=== PATIENT | female | born 1960 | race Caucasian/White ===

== ENCOUNTER 2016-11-22 11:07 | Emergency (ER) | payer MEDICARE, OTHER ==
[~2016-11-22] VITALS: Ht 162.6 cm; Wt 69.0 kg
[~2016-11-22 11:07] MED LIST: ASPIR-LOW81 MG PO; GABAPENTIN600 MG PO; KLONOPIN1 MG PO; LAMOTRIGINE100 MG PO; LIPITOR40 MG PO; NICORETTE4 M1 BUCCAL; RELPAX40 MG PO; WELLBUTRIN SR100 MG PO
== END 2016-11-22 12:39 | disposition home or self-care (01) ==
LOC: ED 11:07
DX: R42 Dizziness and giddiness (principal); H53.8 Other visual disturbances; F41.9 Anxiety disorder, unspecified
CPT/HCPCS: 80053; 85025; 99283

== ENCOUNTER 2017-02-02 23:16 | Emergency (ER) | payer MEDICARE, OTHER ==
[~2017-02-02] VITALS: Ht 162.6 cm; Wt 69.8 kg
== END 2017-02-03 04:09 | disposition home or self-care (01) ==
LOC: ED 23:16
DX: S80.12XA Contusion of left lower leg, initial encounter (principal); S80.11XA Contusion of right lower leg, initial encounter; S40.022A Contusion of left upper arm, initial encounter; S40.021A Contusion of right upper arm, initial encounter; Z04.41 Encounter for examination and observation following alleged adult rape; Z87.891 Personal history of nicotine dependence; F31.9 Bipolar disorder, unspecified; Z86.73 Personal history of transient ischemic attack (TIA), and cerebral infarction without residual deficits; Z98.51 Tubal ligation status; Z98.890 Other specified postprocedural states; Z79.82 Long term (current) use of aspirin; Z79.899 Other long term (current) drug therapy; X58.XXXA Exposure to other specified factors, initial encounter
CPT/HCPCS: 90471; 90715; 96372; 99283; J0696

== ENCOUNTER 2017-06-06 11:47 | Emergency (ER) | payer MEDICARE, OTHER ==
[~2017-06-06] VITALS: Ht 162.6 cm; Wt 76.7 kg
[2017-06-06] MEDS ORDERED: ADDERALL 10 MG10 MG PO (12:01)
[2017-06-06] MEDS ORDERED: CYMBALTA20 MG PO (12:01)
[2017-06-06] MEDS ORDERED: VOLTAREN100 GM TOP (14:18)
== END 2017-06-06 14:25 | disposition home or self-care (01) ==
LOC: ED 11:47
PROC: 0S9C3ZZ Drainage of Right Knee Joint, Percutaneous Approach (ICD-10-PCS; principal; 2017-06-06)
DX: M17.11 Unilateral primary osteoarthritis, right knee (principal); F31.9 Bipolar disorder, unspecified; Z79.899 Other long term (current) drug therapy
CPT/HCPCS: 20610; 99283

== ENCOUNTER 2017-07-06 15:20 | Observation (INO) | payer MEDICARE, OTHER ==
[~2017-07-06] VITALS: Ht 162.6 cm; Wt 78.0 kg
[~2017-07-06 15:20] MED LIST changes: +ADDERALL 10 MG10 MG PO; +CYMBALTA20 MG PO; +VOLTAREN100 GM TOP
--- NOTE | 2017-07-06 17:29 | NUR ---
PATIENT IS HERE TODAY FOR PREADMISSION APPOINTMENT. SHE IS SCHEDULED FOR A LEFT TOTAL KNEE ARTHROPLASTY ON 07/20/17. SHE STATES SHE HAS BEEN TO THE [facility] FOR PHYSICAL THERAPY AND THIS IS WHERE SHE WOULD LIKE HER THERAPY TO BE SET UP AT AFTER SURGERY. THE PATIENT STATES SHE WILL BE STAYING WITH HER FIANCE AFTER SURGERY. HIS HOME HAS 2 STEPS INTO IT WITH NO HAND RAIL. THERE ARE NO STEPS INSIDE THE HOME. THERE IS A WALK IN SHOWER WITH A HAND HELD SHOWER HEAD AND SHE IS LOOKING INTO A SHOWER BENCH. SHE IS GOING TO LOOK INTO A WALKER BUT ASKED IF IT WAS POSSIBLE TO [facility] TO ARRANGE THIS. INFORMATION WILL BE SENT TO DR MEJIA OFFICE TO [facility] FOR FURTHER FOLLOW UP.
--- NOTE | 2017-07-09 18:09 | NUR ---
RECIEVED A MESSAGE FROM THE PRE ADMIT NURSE STATING THE PT HAD SOME QUESTIONS SHE COULD NOT ANSWER AND TOLD THE PT I WOULD CALL HER. SO I CALLED PT AT 1655 ANDSWERED PT QUESTION SHE WAS WONDERING IF THE INSURANCE WOULD PAY FOR A RAISED TOILET SEAT, SHOWER CHAIR AND A HOSPITAL BED. I TOLD HER UNFORTUNATELY THEY WILL NOT PAY FOR ANY EQUIPMENT TO BE USED IN THE BATHROOM. [facility] TOLD HER THAT A LTK SURGERY DOES NOT FIT THE CRITERIA FOR THE INSURANCE TO PAY FOR A HOSPITAL BED. DID TELL HER SHE IS WELCOME TO RENT THIS EQUIPMENT EITHER AT [facility] OR [facility]. GAVE HER THE OFFICE PHONE NUMBER HERE AND TOLD HER SHE IS WELCOME TO CALL HERE ANY TIME. ALSO TOLD HER WE WOULD ORDER HER A FRONT WHEELED WALKER WHEN SHE IS HERE.
--- NOTE | 2017-07-20 08:52 | NUR ---
07/20/17 0852 Sandra Houston 0883 PT ARRIVED TALKING AND A LITTLE DROWSY. DENIES PAIN AND NAUSEA.
--- NOTE | 2017-07-20 09:30 | NUR ---
PT ARRIVED FROM PACU. PT AWAKE ORIENTED AND RESPONDING APPROPRIATLY TO QUESTIONS. PT DENIES PAIN AND NAUSEA. PT REPORTS ITCHING (SEE MAR FOR MEDICATION GIVEN). PIV INFUSING TRANEXAMIC ACID VIA IV PUMP. DRESSING CDI. CRYO CUFF, SCDS, BHAVANA HOSE, AND HEEL PROTECTORS IN PLACE. PT TOELRATING PO WATER AND COFFEE. NO ADDITIONAL REQUESTS OR COMPLAINTS AT THIS TIME. BED RAILS UP. CALL LIGHT WITH INREACH.
--- NOTE | 2017-07-20 11:32 | NUR ---
VITALS AND FOCUSSED ASSESSMENT DUE. PT AWAKE AND TALKING WITH BOYFRIEND. PT DENIES PAIN AND NAUSEA. TOLERATING PO PUDDING AND FLUIDS. DIET ORDER ADVANCED. PT MAINTAINING O2 ABOVE 92% ON ROOM AIR. PT DENIES URGE TO VOID. NO INCONTENANCE NOTED. SPINAL LEVEL NOW AT L3. PT REPORTS NUMBNESS IN FEET. CRYO CUFF, HEAL PROTECTORS, SCD'S, AND BHAVANA HOSE IN PLACE. BED RAILS UP. FAMILY AT BEDSIDE. CALL LIGHT WITHIN REACH.
--- NOTE | 2017-07-20 12:48 | NUR ---
PT CALL LIGHT ON. PT REQUESTS TO GET UP TO COMODE. MEDIUM INCONTINANCE EPISODE NOTED IN BED. PT UNABLE TO GO WHILE ON COMODE. PT BACK TO BED WITHOUT INCIDENT. CRYO CUFF ICE REPLACED. PT DENIES PAIN AND NAUSEA. PT TOLERATED LUNCH WITHOUT NAUSEA. CRYO CUFF, SCDS, BHAVANA HOSE, HEAL PROTECTORS BACK IN PLACE. BED RAILS UP. CALL LIGTH WITHIN REACH.
--- NOTE | 2017-07-20 13:01 | NUR ---
PT REPORTS ITCHING. SEEN SCRATCHING WHILE IN BED. SEE MAR FOR MEDICATION GIVEN. PT STATES "I'M GOING TO TAKE A NAP NOW." NO ADDITIONAL REQUESTS OR COMPLAINTS AT THIS TIME. CALL LIGHT WITHIN REACH.
[2017-07-20] MEDS ORDERED: LAMOTRIGINE200 MG PO (13:19)
--- NOTE | 2017-07-20 13:31 | OR ---
[facility] [address] [place], [place] [address] Signed DATE OF OPERATION: 07/20/2017 SURGEON: Lois Barros MD PREOPERATIVE DIAGNOSIS: Severe degenerative joint disease, left knee. POSTOPERATIVE DIAGNOSIS: Severe degenerative joint disease, left knee. PROCEDURE PERFORMED: Left total knee arthroplasty with computer navigation. CHEMIST ORGANIC: DAVID Aragon ANESTHESIA: Spinal. BLOOD LOSS: Minimal. TOURNIQUET TIME: 58 minutes. IMPLANTS: Hien Triathlon size 4 femur, 3 tibia, 11 mm insert and a 32 mm patella. BRIEF HISTORY: Valerie is a 56-year-old female with worsening of arthritis particularly at patella and femur. Risks and benefits of operative treatment were discussed with her and she elected to proceed. DESCRIPTION OF PROCEDURE: Once consent was obtained, she was taken to the operating room. After adequate anesthesia, she was placed on the operating room table. All downside pressure points well padded. The left leg was placed in well-padded proximal thigh tourniquet and placed on a hip bump. The leg was then prepped and draped in the standard sterile fashion and exsanguinated using Esmarch bandage. Tourniquet inflated to 250 mmHg. Standard anterior approach through curved incision was taken through the skin and Electronically Signed By: LOIS BARROS MD 07/20/17 1331 PATIENT NAME: VALERIE CEE OPERATIVE REPORT DATE OF : 62 REPORT #: [id number] PHYSICIAN: LOIS BARROS MD PCP: MIRIAN WHITLEY REPORT IS CONFIDENTIAL AND NOT TO BE RELEASED WITHOUT AUTHORIZATION [facility] [address] [place], [place] [address] Signed subcutaneous tissue. Median parapatellar arthrotomy was performed. The infrapatellar fat pad was excised and the MCL was elevated of a sleeve subperiosteally around the posterior corner. Knee was flexed. The anterior horns of menisci were transected as was the ACL. The PCL was found to be intact. The navigation guide was pinned to the distal femur and the femur was registered with the computer. The distal femoral cut was then made in alignment with the axis. The AP cutting block was then pinned in alignment with the epicondylar axis. Anterior, posterior, and chamfer cuts were made. It was sized to a four at that point. The attention was turned to proximal tibia. The navigation guide was again pinned to the proximal tibia, and the tibia was registered with the computer. The cutting block was then pinned in neutral alignment. The cut was made with care taken to protect the MCL and patellar tendon. The bone was removed as were any meniscal remnants. Posterior release performed off the femur. Posterior osteophytes were removed. The flexion and extension gaps were sized found to be symmetric at 11 mm. The trials were then positioned using through range of motion and found to be stable. The patella was cut sized over 32 mm patella. There was extensive erosion. The distal femur was finished using the drill and the proximal tibia was finished using the keel punch. The bone surfaces were pulse lavaged, dried with a Ray-Dov and the cement was mixed. When it reached proper consistency, displaced all implants on all bone surfaces. The cement was placed on all implants and on all bone surfaces. Tibia was impacted in position first followed by the femur. Any excess was removed. The polyethylene was snapped into position. The femur was impacted in position again and remaining cement was removed. The knee was extended and nicely loaded. The patella was clamped and any remaining cement was removed. The cement was allowed to hardened sufficiently. Once it hardened sufficiently, the knee was flexed and the remaining cement was removed using osteotomes. The knee was pulse lavaged at intervals throughout the procedure. A total of 3 L antibiotic irrigation was used. The periarticular soft tissues were injected with a mixture of ropivacaine, Toradol. The arthrotomy was then closed using #2 Stratafix, 0 Stratafix for subcutaneous tissue, and donita for the skin. Knee was dressed with Mepilex Ag dressing, ABD, and Jose wrap. She tolerated the procedure well. All sponge, needle, and instrument counts were correct. Lois Barros MD BA/MODL /[id number] Electronically Signed By: LOIS BARROS MD 07/20/17 1331 PATIENT NAME: VALERIE CEE OPERATIVE REPORT DATE OF : 62 REPORT #: [id number] PHYSICIAN: LOIS BARROS MD PCP: MIRIAN WHITLEY REPORT IS CONFIDENTIAL AND NOT TO BE RELEASED WITHOUT AUTHORIZATION [address] [address] Signed Copies: ~ Electronically Signed By: LOIS BARROS MD 07/20/17 1331 PATIENT NAME: JAYEVALERIEMAO CURTIS OPERATIVE REPORT DATE OF : 62 REPORT #: [id number] PHYSICIAN: LOIS BARROS MD PCP: MIRIAN WHITLEY REPORT IS CONFIDENTIAL AND NOT TO BE RELEASED WITHOUT AUTHORIZATION
[2017-07-20] MEDS ORDERED: DULOXETINE HCL60 MG PO (13:58)
--- NOTE | 2017-07-20 14:17 | NUR ---
PATIENT BLADDER SCANNED FOR GREATER THAN 999. UP TO COMMODE TO VOID 300ML OF ORANGE URINE. PATIENT REPEAT SCAN AFTER VOID IS 924 ML. PATIENT UP TO COMMODE TO DOUBLE VOID. PATIENT REPORTS URINARY RETENTION AT BASELINE.
--- NOTE | 2017-07-20 14:46 | NUR ---
PATIENT SUCCESSFUL IN VOIDING 1300ML IN THE LAST HOUR. PHYSICAL THERAPY IN TO WORK WITH PATIENT. PATIENT DENIES ANY PAIN AT THIS TIME.
--- NOTE | 2017-07-20 15:30 | NUR ---
PT WALKING WITH PT.
--- NOTE | 2017-07-20 15:43 | NUR ---
Medications reconciled using pharmacy fill records, visual inspection of RX vials and patient interview.
--- NOTE | 2017-07-20 15:47 | NUR ---
We will be dispensinge patient's own medication (Adderall 10mg generic) to her will inpatient
--- NOTE | 2017-07-20 16:54 | NUR ---
AFTERNOON ASSESSEMENT DUE. PT UP TO COMODE WITH ANOTHER RN. PT VOIDING NOW WITHOUT ISSUE. PT BACK TO BED WITHOUT ISSUE. PT CONTINUES TO "FEEL ITCHY." ASSESSEMENT DONE. MEDICATIONS GIVEN ORDERED. DINNER ARRIVED. PT EATING. PT DENIES PAIN AND NASUEA. CRYO CUFF, SCD'S, HEEL PROTECTORS, BHAVANA HOSE, AND PULSE OX ON. CALL LIGHT WITHIN REACH. BED RAILS UP.
--- NOTE | 2017-07-20 17:16 | NUR ---
CALL TO DR. MEJIA ABOUT PATIENT ITCHING. DR. MEJIA SUGGESTED DISCUSSING WITH DR. JUSTIN OR COATING MIXER SUPERVISOR. DR. JUSTIN ORDERED MEDICATIONS.
--- NOTE | 2017-07-20 18:21 | NUR ---
PT HERE FOR LEFT TKA. O/10 PAIN TODAY. DENIES NAUSEA. ISSUES WITH ITCHING TODAY. BENEDRYL GIVEN X2 WELL PEPCID AND VISTERAL. PT UP WITH PHYSICAL THERAPY. PT VOIDING WITHOUT ISSUE. 1 PERSON ASSIST. REGULAR DIET. SL IN RIGHT HAND. PT ANXIOUS AT TIMES. ADDERALL TONIGHT. SPINAL RESOLVED. DURAMORPH PROTOCOL COMPLETE AT 1717.
--- NOTE | 2017-07-20 18:58 | NUR ---
PT CALL LIGHT ON. PT REPORTS "BAD ITCHING." BENADRYL GIVEN (SEE MAR). PTS BOYFRIEND (LUIS) AT BEDSIDE. CALL LIGHT WITHIN REACH. BED RAILS UP. CRYO CUFF, SCD'S, BHAVANA HOSE, HEEL PROTECTORS IN PLACE. WET WASH CLOTH PROVIDED.
--- NOTE | 2017-07-20 19:41 | NUR ---
RECIEVED REPORT FROM DAY SHIFT NURSE. PATIENT RESTING IN BED WITH FRIENDS IN ROOM. SHE IS SMILING AND LAUGHING. NO C/O AT THIS TIME. CRYOCUFF IN PLACE ON L KNEE. HEEL PROTECTORS AND SCDS ON. PATIENT DENIES NEEDS. CALL LIGHT IN REACH.
--- NOTE | 2017-07-20 20:15 | NUR ---
PATIENT RESTING IN BED. LAUGHING AND SMILING WITH FRIEND AT BEDSIDE. PATIENT C/O PAIN IN HER L KNEE 11/17. DELIVERED CRACKERS TO TAKE WITH HER OXYCODONE TO PREVENT NAUSEA. 1 TAB ADMINISTERED. PATIENT'S LUNGS ARE CLEAR. HR REGULAR. PALPABLE PEDAL PULSES. NO PEDAL EDEMA. PATIENT DENIES NUMBNESS/TINGLING. JEWELL WRAP C/D/I. BS ACTIVE. PATIENT DENIES FLATUS AT THIS TIME. DENIES FURTHER NEEDS. CALL LIGHT IN REACH. EDUCATED TO CALL IN 1 HOUR IF PAIN IS NOT TOLERABLE. SHE AGREED.
--- NOTE | 2017-07-20 22:02 | NUR ---
PATIENT NOW RATES L KNEE PAIN 02/17. DILAUDID ADMINISTERED PER JUL. ENCOURAGED PATIENT TO CALL IF PAIN MEDICATION DOES NOT TAKE HER PAIN LEVEL DOWN TO A TOLERABLE LEVEL. PATIENT DENIES FURTHER NEEDS. CALL LIGHT IN REACH.
--- NOTE | 2017-07-20 22:22 | NUR ---
REASSESSED PATIENT'S PAIN. PATIENT STATES IT IS STILL NOT TOLERABLE AT AN 8/10. CALLED MD TO OBTAIN NEW ORDER.
--- NOTE | 2017-07-20 22:28 | NUR ---
1 TAB DILAUDID ADMINISTERED. PATIENT ALSO C/O PRURITUS->BENADRYL ADMINISTERED.
--- NOTE | 2017-07-20 23:41 | NUR ---
PATIENT SLEEPING. CPAP IN PLACE. CALL LIGHT IN REACH.
--- NOTE | 2017-07-21 | NUR ---
PATIENT RESTING IN BED. STATES HER PAIN IS A 5/10 AND WOULD LIKE PAIN MEDICAITON SO HER PAIN DOES NOT GET OUT OF CONTROL AGAIN. OXYCODONE ADMINISTERED. ABX INFUSING. CALL LIGHT IN REACH.
--- NOTE | 2017-07-21 02:30 | NUR ---
ASSISTED PATIENT TO BATHROOM. VOIDED. BACK TO BED. APPLIED SCDS AND HEEL PROTECTORS. NO C/O PAIN AT THIS TIME. PATIENT STILL ITCHING. BENADRYL ADMINISTERED. REFILLED WATER PITCHER. CRYOCUFF TO L KNEE. JEWELL INTACT AND DRY. NO PEDAL EDEMA. PALPABLE PEDAL PULSES. LUNGS CLEAR, HR REGULAR, ACTIVE BS. PATIENT STATES SHE IS PASSING FLATUS. PATIENT STATES SHE IS GOING TO READ AT THIS TIME. DENIES FURTHER NEEDS. CALL LIGHT IN REACH.
--- NOTE | 2017-07-21 04:20 | NUR ---
patient c/o pain 10 in l knee. patient states dilaudid po works better for her becuase she has taken it before and it worked. patient denies further needs. call light in reach.
--- NOTE | 2017-07-21 08:16 | NUR ---
MORNING ASSESSMENT AND MEDICATION DUE. PT UP TO CHAIR AND ASSISTED TO RESTROOM. ASSESSMENT DONE. FEET NOTED TO BE COLD, PULSES PRESENT. PT STATES "I LIKE MY FEET COLD." MEDICATIONS GIVEN (SEE MAR). PAIN MANAGEMENT PLAN DISCUSSED WITH PT. PT VERBALIZES UNDERSTANDING. PT EATING BREAKFAST. PHYSICAL THERAPY PLANS TO WORK WITH PT ARROUND 9AM. PT VERBALIZES UNDERSTANDING. CALL LIGHT WITHIN REACH. CRYO CUFF IN PLACE.
--- NOTE | 2017-07-21 09:13 | NUR ---
THIS OXYGEN FURNACE OPERATOR ASSISTED THE PATIENT TRANSFER FROM THE CHAIR TO THE BATHROOM. 1 PERSON ASSIST WITH FWW. PATIENT IS NOW RESTING IN BED. FRESH ICE WATER. CALL LIGHT WITHIN REACH. PATIENT STATES THAT HER PAIN LEVEL IS AN 8 OUT OF 10, BUT ALSO STATES THAT SHE HAD PAIN MEDICATION WITHIN THE LAST 20 MINUTES SO SHE IS WAITING FOR THOSE TO START WORKING. ICE IN CRYO. NO OTHER NEEDS AT THIS TIME.
--- NOTE | 2017-07-21 09:29 | NUR ---
PATIENT RATES LEFT LEG PAIN AT 8/10. GIVEN 10MG OF OXYCODONE BEFORE PHYSICAL THERAPY. PATIENT IS WIDE AWAKE, RESPIRATIONS ARE 18.
--- NOTE | 2017-07-21 11:24 | NUR ---
THIS RN OUT SIDE OF ROOM. PT LAUGH, AUDIBLE THROUGH DOOR, WITH FRIEND. THIS RN INTO ROOM FOR FOCUSED ASSESSMENT. PT IMMIDIATLY STATES "ITS AN 8 NO 10" FOR PAIN RAITING. FOCUSSED ASSESSMENT DONE. PT RETURNES TO LAUGHING AND JOKING WITH FRIEND AT BEDSIDE. PT SMILING AND WORKING ON PHONE. BED RAILS UP. CALL LIGHT WITHIN REACH. CRYO CUFF, SCD'S BHAVANA HOSE AND HEEL PROTECTORS IN PLACE.
--- NOTE | 2017-07-21 11:30 | NUR ---
PT CONTINUES TO REPORT 10/10 PAIN. PT DISPLAYS RELAXED POSTURE, LAUGHING AND TALKING WITH FRIEND. PT STATES "I'M NOT TRYING TO GET MORE PAIN MEDICATION BUT ITS KILLING ME." NO DISTRESS NOTED ON ASSESSMENT. NEXT PAIN MEDCIATION DUE AT 1230. MD NOTIFIED. MD STATES NO NEW ORDERS AT THIS TIME, CONTINUE WITH CURRENT PAIN REGIEM WHICH INCLUDES 2 PRN PAIN MEDICATIONS.
--- NOTE | 2017-07-21 11:40 | NUR ---
PT UPDATED REGARDING PLAN OF CARE AND PAIN MANAGEMENT. PT VERBALIZES UNDERSTANDING AND STATES "THIS IS GREAT." PT EATING LUNCH. NO ADDITIONAL REQUESTS OR COMLAINTS AT THIS TIME. BED RAILSUP. CALL LIGHT WITHIN REACH.
--- NOTE | 2017-07-21 12:35 | NUR ---
THIS RN TO BEDSIDE. PT REQUESTS ASSISTANCE UP TO RESTROOM. PT UP WITH 1P STAND BY ASSIST AND FWW. PT VOIDS WITHOUT ISSUE. PT BACK TO BED. DRAW SHEET CHANGED. PT RATES HER PAIN AT "15." EDUCATION DONE REGARDING USE OF PAIN SCALE. PT RESTATES "10 TO THE 10TH POWER." PAIN MEDICATION GIVEN ORDERED. EDUCATION R/T PAIN CONTROL DONE. PT DEMONSTARTES AND VERBALIZES UNDERSTANDING. PT IN NO APPARENT DISTRESS. MUSLCES RELAXED, RR = 16, HR = 70. PT LAUGHING AND VISITING WITH FRIEND AT BEDSIDE. CRYO CUFF ATTACHED. SCD'S, BHAVANA HOSE, AND HEEL PROTECTORS ON. PT DENIES ITCHING AND NAUSEA. PT STATES NO ADDITIONAL REQUESTS OR COMPLAINTS AT THIS TIME. BED RAILS UP. CALL LIGHT WITHIN REACH.
--- NOTE | 2017-07-21 12:46 | NUR ---
PATIENT RESTING IN BED VISITING WITH FAMILY MEMBER. PATIENTS FAMILY MEMBER IN ROOM. RN IN ROOM. PATIENT STATES THAT RN JUST GAVE HER A PAIN MED. FRESH ICE WATER. ICE IN CRYO. CALL LIGHT WITHIN REACH. NO OTHER NEEDS AT THIS TIME.
--- NOTE | 2017-07-21 13:24 | NUR ---
PT RESTING IN BED AT THIS TIME. DOES NOT COMPLAIN OF PAIN. SHE REPORTS SHE WOULD LIKE TO TAKE A SMALL NAP BEFORE SHE HAS TO WORK WITH PHYSICLA THERAPY THIS AFTERNOON. PT REPORTS SHE DOES NOT REALLY WANT TO WORK WITH PHYSICAL THERAPY THIS AFTERNOON. RN GAVE EDUCATION ON IMPORTANCE OF MOBILIZATION, AND COMPLICATIONS OF NOT MOBILIZING PER PHYSICAL THERAPY. PATIENT WAS RECEPTIVE BUT DID NOT RESPOND. PT IS TEXTING ON PHONE, RELAXED POSTURE, NO DISTRESS NOTED ON VISIAL ASSESSMENT.
--- NOTE | 2017-07-21 14:19 | NUR ---
THIS RN TO BEDSIDE WITH AFTERNOON MEDICATION. PHYSICAL THERAPY AT BEDSIDE WITH PT. PT REPORTS 10/10 PAIN. NO NOTABLE DISTRESS, MUSCLES RELAXED, PT TALKING WITH PHYSICAL THERAPY. PT UP WITH PHYSICAL THERAPY FOR A WALK. JOKING WITH THERAPIST. SEE MAR FOR MEDICATION GIVEN.
--- NOTE | 2017-07-21 14:20 | NUR ---
PATIENT IN BED VISITING WITH A FAMILY MEMBER. FRESH ICE WATER. ICE IN CRYO. PT CAME IN TO WORK WITH PATIENT. PATIENT STATES THAT HER PAIN LEVEL IS A 10 OUT OF 10. RN IN ROOM AND NOTIFIED. CALL LIGHT WITHIN REACH. NO OTHER NEEDS AT THIS TIME.
--- NOTE | 2017-07-21 14:39 | NUR ---
PT SITTING IN BED-ALERT, ORIENTED AND VISITING WITH FRIEND. SHE SEEMS TO ME VERY PLEASANT, JOKING AND MENTIONED THAT SHE HAS A HIGH PAIN TOLERANCE. PT MENTIONED THAT SHE WOULD LIKE THE SUBSTANCE ABUSE SERVICES DIRECTOR TO COME AND SERVE COMMUMION. NOTIFIED FR CANDELARIO, HE WILL COME AROUND 1500. LET PT KNOW, WILL FOLLOW NEEDED
--- NOTE | 2017-07-21 14:50 | NUR ---
THIS RN CALLED TO BEDSIDE BY PHYSICAL THERAPIST. PHYSICAL THERAPIST STATES "PT SAYS SHE IS SEEING STARS." PT ASSISTED TO BED. PT PLACED IN SUPINE POSITION WITH HOB LOWERED. VITALS TAKEN. BP NOTED TO BE 81/45, RETAKEN 5 MINUTES LATER AT 85/53. PT REMAINS IN SUPINE POSITION. COOL CLOTH PLACED TO FORHEAD. O2 100% ON ROOM AIR. MD NOTIFIED OF BLOOD PRESSURE. MD AT BEDSIDE. STATES TO RETAKE BLOOD PRESSURE IN 15 MINUTES. BED RAILS UP. CALL LIGHT WITHIN REACH. CRYO CUFF, SCD'S, BHAVANA MCDERMOTT, HEAL PROTECTORS IN PLACE.
--- NOTE | 2017-07-21 15:10 | NUR ---
NOTIFIED OF SUSTAING SBP <90. MD STATES TO CONTINUE TO MONITOR AND GIVE HYDROXYZINE FOR ANXIETY. THIS RN TO BEDSIDE. BP TAKEN (82/41). MEDICATION GIVEN ORDERED (SEE MAR). PT CONTINUES RESTING SUPINE IN BED. NO REQUESTS OR COMPLAINS AT THIS TIME. BED RAILS UP. CALL LIGHT WITHIN REACH
--- NOTE | 2017-07-21 15:41 | NUR ---
DR. MEJIA CALLED WITH UPDATE ABOUT LOW BLOOD PRESSURE READING. DR. MEJIA STATES TO CONTINUE TO MONITOR FOR NOW.
--- NOTE | 2017-07-21 16:22 | NUR ---
THIS RN TO BEDSIDE TO MONITOR BP. BP NOW 105/49. PT NAPPING ON AND OFF, AWAKENS TO VOICE. RR = 14. PT STATES "I JUST NEEDED A NAP." PT HAS NO REQEUSTS OR COMLAINTS AT THIS TIME. FLUIDS ENCOAURGED. BED RAILS UP. CALL LIGHT WITHIN REACH.
--- NOTE | 2017-07-21 17:10 | NUR ---
MEDICARE OUTPATIENT OBSERVATION NOTICE SIGNED BY PATIENT. COPY GIVEN TO PT. PT DENIED QUESTIONS.
--- NOTE | 2017-07-21 17:24 | NUR ---
MEDICATION DUE. PT SITTING UP IN BED EATING DINNER. BP TAKEN. (105/52). PT RATES PAIN AT 5/10. PT DENIES NAUSEA AND ITCHING. PT APPEARS LESS ANXIOUS THAN BEFOR. MEDICATION GIVEN. BED RAILS UP. CALL LIGHT WITHIN REACH.
--- NOTE | 2017-07-21 17:54 | NUR ---
PT HERE FOR LEFT TKA. 1 PERSON STAND BY ASSIST. REGULAR DIET. PT STATING 10/10 PAIN ALL DAY. Q 4 HOUR PAIN MEDICAITONS ALTERNATED. LOW BLOOD PRESSURE THIS AFTERNOON. PAIN MEDICATION HELD UNTIL BP RETURNS TO WNL. DR. JUSTIN AND DR. MEJIA AWARE OF BOTH PAIN AND BP. VISTERAL AVALIABLE FOR EITHER ITCHING OR ANXIETY. GIVEN X2 TODAY. PT VOIDING AND TOLERATING PO WELL. PT UP WITH PHYSICAL THERAPY X2 TODAY. LAST BM 06/21/17.
--- NOTE | 2017-07-21 18:45 | NUR ---
THIS RN TO BEDSIDE TO CHECK ON PT. KARMA ESCALERA CHECKING BP. PT REQUESTS PAIN MEDICATION. SEE MAR FOR MEDICATION GIVEN. ICE REPLACED IN CRYO CUFF. BED RAILS UP. AT BEDSIDE. CALL LIGHT WITHIN REACH.
--- NOTE | 2017-07-21 19:10 | NUR ---
IN ROOM FOR REPORT, PT IS AWAKE IN BED VISITING WITH JANETT SMITH. PT DENIES NEEDS AT THIS TIME. CALL LIGHT IS WITHIN REACH.
--- NOTE | 2017-07-21 21:10 | NUR ---
PT HAS VISITORS IN ROOM AT THIS TIME. ADMINISTERED EVENING MEDICATIONS. DISCUSSED HOLDING OFF ON MORE PAIN MEDS TO AVOID LOW BP LIKE EARLIER IN THE DAY. PT IS CARRYING ON CONVERSATION AND DOES NOT SHOW OUTWARD SIGNS OF PAIN AT THIS TIME, BUT STATES SHE IS ANXIOUS. CALL LIGHT IS WITHIN REACH. PT DENIES FURTHER NEEDS.
--- NOTE | 2017-07-21 22:48 | NUR ---
PT CALLED ASKING FOR DILAUDID, ADMINISTERED AND PT DENIES FURTHER NEEDS. CALL LIGHT IS WITHIN REACH.
--- NOTE | 2017-07-22 00:36 | NUR ---
PT IS RESTING WITH EYES CLOSED, RESPIRATIONS EVEN AND NONLABORED.
--- NOTE | 2017-07-22 01:31 | NUR ---
PT IS RESTING WITH EYES CLOSED, RESPIRATIONS EVEN AND NONLABORED. CALL LIGHT IS WITHIN REACH.
--- NOTE | 2017-07-22 02:33 | NUR ---
PT IS RESTING WITH EYES CLOSED, RESPIRATIONS EVEN AND NONLABORED. CALL LIGHT IS WITHIN REACH.
--- NOTE | 2017-07-22 03:23 | NUR ---
PT IS RESTING WITH EYES CLOSED, RESPIRATIONS EVEN AND NONLABORED. CALL LIGHT IS WITHIN REACH.
--- NOTE | 2017-07-22 04:47 | NUR ---
HELPED PT TO RESTROOM AND BACK TO BED. PT REPORT PAIN AT 8/10 BUT IS TALKING AND LAUGHING WITHOUT ANY GRIMACING. ADMINISTERED 2 OXYCODONE. PT DENIES FURTHER NEEDS AT THIS TIME.
--- NOTE | 2017-07-22 05:01 | NUR ---
PT SLEPT WELL THROUGH THE NIGHT FROM ATLEAST MIDNIGHT UNTIL 0430. SHE IS A STANDBY ASSIST WITH THE WALKER. PT HAS CONSISTENTLY REPORTED HER PAIN AT 7/10 OR 8/10, HOWEVER, SHE DOES NOT APPEAR IN DISTRESS AND CARRIES ON CONVERSATIONS AND LAUGHS. ALTERNATING PAIN MEDS AND CHECKING BP SINCE IT RAN LOW EARLIER IN THE DAY. GAVE PT VISTERAL AT BEDTIME AND CALLED IT HYDROXINE AND IT SEEMED TO HELP RELAX HER. PT HAD M.O.M AT BEDTIME, NO BM SINCE THE . PT IS VOIDING QS.
--- NOTE | 2017-07-22 06:47 | NUR ---
PT IS AWAKE IN BED, HELPED HER CLEAN UP A COFFEE SPILL. PT DENIES FUTHER NEEDS AT THIS TIME. CALL LIGHT IS WITHIN REACH.
--- NOTE | 2017-07-22 07:25 | NUR ---
REPORT RECEIVED AT BEDSIDE FROM ELDRED. PATIENT AWAKE, A&O. REPORT MILD PAIN IN THE LEFT KNEE. JEWELL WRAP AND CRYO CUFF IN PLACE. PATIENT IS S/L. PATIENT WAS ASSISTED TO BATHROOM TO VOID AND THEN BACK TO BED WITH FWW. CALL LIGHT IN REACH. NO APPARENT DISTRESS NOTED.
[2017-07-22] MEDS ORDERED: XARELTO10 MG PO (08:44)
[2017-07-22] MEDS ORDERED: DICLOFENAC SODI75 MG PO (08:46)
[2017-07-22] MEDS ORDERED: HYDROXYZINE PAM50 MG PO (08:48)
[2017-07-22] MEDS ORDERED: ONDANSETRON HCL4 MG PO (08:49)
[2017-07-22] MEDS ORDERED: OXYCODONE HCL5 MG PO (08:50)
[2017-07-22] MEDS ORDERED: HYDROMORPHONE HC4 MG PO (08:50)
--- NOTE | 2017-07-22 08:50 | NUR ---
PATIENT RESTING IN BED REPORTS 8/10 LEFT KNEE PAIN. PATIENT WAS MEDICATED FOR PAIN. MORNING MEDS ADMINISTERED. SHIFT ASSESSMENT DONE. PERIPHERAL PULSES PALPABLE. SKIN IN THE LLE PINK AND WARM. BHAVANA HOSE IN PLACE. DENIES ANY NUMBNESS OR TINGLING. IV SITE PATENT. PATIENT DENIES NAUSEA. UP TO BATHROOM WITH SBA THEN BACK TO BED. CALL LIGHT IN REACH.
--- NOTE | 2017-07-22 10:55 | NUR ---
PHARMACIST IN ROOM TO EDUCATE PATIENT ABOUT MEDICATION.
--- NOTE | 2017-07-23 17:59 | NUR ---
FAXED ORDER AND CHART NOTES TO [facility] INCLUDING FACESHEET, H AND P, OP NOTE, PROG NOTES, PT AND OT EVAL AND NOTES.
--- NOTE | 2017-07-23 18:57 | NUR ---
RECIEVED CONFIRMATION OF CHART SENT TO [facility].
== END 2017-07-22 11:25 | disposition home or self-care (01) ==
LOC: DSVR 07-20 05:50 → MS 07-20 05:50 → DSVR 07-20 09:30 → MS 07-22 11:25
PROVIDERS: ADMIT Specialist
PROC: 8E0YXBZ Computer Assisted Procedure of Lower Extremity (ICD-10-PCS; 2017-07-20)
PROC: 3E0T3BZ Introduction of Anesthetic Agent into Peripheral Nerves and Plexi, Percutaneous Approach (ICD-10-PCS; 2017-07-20)
PROC: 3E0T33Z Introduction of Anti-inflammatory into Peripheral Nerves and Plexi, Percutaneous Approach (ICD-10-PCS; 2017-07-20)
PROC: 0SRD0J9 Replacement of Left Knee Joint with Synthetic Substitute, Cemented, Open Approach (ICD-10-PCS; principal; 2017-07-20 06:45)
DX: M17.12 Unilateral primary osteoarthritis, left knee (principal); G89.18 Other acute postprocedural pain; F31.9 Bipolar disorder, unspecified; G43.909 Migraine, unspecified, not intractable, without status migrainosus; Z79.82 Long term (current) use of aspirin; Z79.899 Other long term (current) drug therapy; Z87.891 Personal history of nicotine dependence
CPT/HCPCS: 01402; 36415; 64447; 64450; 76942; 80048; 85025; 85610; 96374; 96375; 96376; 97110; 97116; 97162; C1713; C1776; G0378; G8978; G8979; J0690; J1100; J1170; J1200; J1885; J2250; J2274; J2300; J2704; J2795; J3010; J7120

== ENCOUNTER 2017-10-27 17:30 | Emergency (ER) | payer MEDICARE, OTHER ==
[~2017-10-27] VITALS: Ht 162.6 cm; Wt 78.0 kg
[~2017-10-27 17:30] MED LIST changes: +DICLOFENAC SODI75 MG PO; +DULOXETINE HCL60 MG PO; +HYDROMORPHONE HC4 MG PO; +HYDROXYZINE PAM50 MG PO; +LAMOTRIGINE200 MG PO; +ONDANSETRON HCL4 MG PO; +OXYCODONE HCL5 MG PO; +XARELTO10 MG PO
[2017-10-27] MEDS ORDERED: CLONAZEPAM1 MG PO (17:47)
== END 2017-10-27 20:22 | disposition home or self-care (01) ==
LOC: ED 17:30
DX: G43.909 Migraine, unspecified, not intractable, without status migrainosus (principal); F31.9 Bipolar disorder, unspecified; Z87.891 Personal history of nicotine dependence; Z79.899 Other long term (current) drug therapy
CPT/HCPCS: 96361; 96374; 96375; 99282; J1200; J1885; J2765; J7030

== ENCOUNTER 2018-02-09 16:15 | Emergency (ER) | payer OTHER, MEDICARE ==
[~2018-02-09] VITALS: Ht 162.6 cm; Wt 78.0 kg
--- OUTSIDE RECORDS SUMMARY | ~2018-02-09 | XMS | Clinical Summary ---
Demographics + + + | Address | [address] | | | [place] [address] | + + + | Home Phone | | + + + | Preferred Language | Unknown | + + + | Marital Status | | + + + | Evangelical Affiliation | Unknown | + + + | Race | Unknown | + + + | Ethnic Group | Unknown | + + + Author + + + | Author | [facility] | + + + | Organization | [facility] | + + + | Address | Unknown | + + + | Phone | Unavailable | + + + Support + + +---------+ + | Name | Relationship | Address | Phone | + + +---------+ + | Nicky Moon | ECON | Unknown | | + + +---------+ + Care Team Providers + +------+ + | Care Senior Support Analyst Name | Role | Phone | + +------+ + PP | Unavailable | + +------+ + Allergies No Known Allergies Current Medications + + +-------+---------+------+------+-------+ | Prescription | Sig. | Disp. | Refills | Star | End | Statu | | | | | | t | Date | s | | | | | | Date | | | + + +-------+---------+------+------+-------+ | | Take 1 tablet by | | 0 | 09/2 | | Activ | | amphetamine-dextroam | mouth 2 (two) times | | | /20 | | e | | phetamine (ADDERALL) | daily. 1 T PO Q AM | | | 17 | | | | 10 MG tablet | AND AT NOON | | | | | | + + +-------+---------+------+------+-------+ | buPROPion | 2 tablets every | | 2 | 10/2 | | Activ | | (WELLBUTRIN SR) 100 | morning and 1 in the | | | / | | e | | MG 12 hr tablet | afternoon. | | | 17 | | | + + +-------+---------+------+------+-------+ | atorvastatin | Take 1 tablet by | | 10 | 10/2 | | Activ | | (LIPITOR) 40 MG | mouth daily. | | | 09/27 | | e | | tablet | | | | 17 | | | + + +-------+---------+------+------+-------+ | lamotrigine | Take 1 tablet by | | 2 | 09/2 | | Activ | | (LAMICTAL) 200 MG | mouth 2 (two) times | | | 20 | | e | | tablet | daily. | | | 17 | | | + + +-------+---------+------+------+-------+ | clonazePAM | Take 1 tablet by | | 2 | 09/ | | Activ | | (KLONOPIN) 1 MG | mouth 2 (two) times | | | 8/20 | | e | | tablet | daily as needed. | | | 17 | | | + + +-------+---------+------+------+-------+ | DULoxetine | Take 1 capsule by | | 2 | 01/09 | | Activ | | (CYMBALTA) [address] | mouth daily. | | | 8/20 | | e | | capsule | | | | 17 | | | + + +-------+---------+------+------+-------+ | gabapentin | Take 1 tablet by | | 2 | 01/09 | | Activ | | (NEURONTIN) 600 MG | mouth 3 (three) | | | 8/20 | | e | | tablet | times daily. | | | 17 | | | + + +-------+---------+------+------+-------+ | eletriptan | Take 20 mg by mouth | | | | | Activ | | (RELPAX) 20 MG | as needed for | | | | | e | | tablet | Migraine. If | | | | | | | | headache improves | | | | | | | | but returns, may | | | | | | | | repeat dose after 2 | | | | | | | | hours. Maximum of 4 | | | | | | | | tablets in 24 hours. | | | | | | + + +-------+---------+------+------+-------+ | aspirin 81 MG | Take 81 mg by mouth | | | | | Activ | | tablet | daily. | | | | | e | + + +-------+---------+------+------+-------+ Active Problems + + + | Problem | Noted Date | + + + | Bilateral carpal tunnel syndrome | 04/30/2017 | + + + | Dysarthria | 03/20/2017 | + + + | Memory loss | 03/20/2017 | + + + | Hand numbness | 03/20/2017 | + + + Family History + + +------+ + | Medical History | Relation | Name | Comments | + + +------+ + | Dementia | Neg Hx | | | + + +------+ + Social History + +-------+ +--------+------+ | Tobacco Use | Types | Packs/Day | Years | Date | | | | | Used | | + +-------+ +--------+------+ | Former Smoker | | | | | + +-------+ +--------+------+ + +---+---+---+ | Smokeless Tobacco: | | | | | Never Used | | | | + +---+---+---+ + + | Tobacco Cessation: Counseling Given: No | + + + + +---------+ + | Alcohol Use | Drinks/We | oz/Week | Comments | | | ek | | | + + +---------+ + | No | | | | + + +---------+ + + + + | Sex Assigned at | Date Recorded | | | | + + + | Not on file | | + + + Last Filed Vital Signs + + + + | Vital Sign | Reading | Time Taken | + + + + | Blood Pressure | 122/71 | 04/27/2017 9:19 AM PST | + + + + | Pulse | 105 | 04/27/2017 9:19 AM PST | + + + + | Temperature | - | - | + + + + | Respiratory Rate | - | - | + + + + | Oxygen Saturation | 99% | 04/27/2017 9:19 AM PST | + + + + | Inhaled Oxygen | - | - | | Concentration | | | + + + + | Weight | 74.9 kg (165 lb 1.6 | 04/27/2017 9:19 AM PST | | | oz) | | + + + + | Height | 162.6 cm (5' 4") | 04/27/2017 9:19 AM PST | + + + + | Body Mass Index | 28.34 | 04/27/2017 9:19 AM PST | + + + + Plan of Treatment + + + + + | Health Maintenance | Due Date | Last Done | Comments | + + + + + | Vaccine: | | | | | Dtap/Tdap/Td (1 - | 1 | | | | Tdap) | | | | + + + + + | Cervical Cancer | | | | | Screening (Pap) | 2 | | | + + + + + | Breast Cancer | | | | | Screening | 2 | | | | (Mammogram) | | | | + + + + + | Colon Cancer | | | | | Screening | 2 | | | | (Colonoscopy) | | | | + + + + + | Vaccine: Influenza | | | | | (#1) | 8 | | | + + + + + Results Not on filefrom Last 3 Months Insurance + +--------+ +------+-------+ + | Payer | Benefi | Subscriber | Type | Phone | Address | | | t Plan | ID | | | | | | / | | | | | | | Group | | | | | + +--------+ +------+-------+ + | MEDICARE | MEDICA | [id number] | | | [address] | | | RE | | | | [place], [place] [phone] | | | IP-OP | | | | | + +--------+ +------+-------+ + | - WPS - | TRICAR | [id number] | | | [address] [address] | | | [place] | | | | [place] | | | LIFE | | | | [phone] | + +--------+ +------+-------+ + + +--------+ +--------+ + + | Guarantor Name | Accoun | Relation to | Date | Phone | Billing Address | | | t Type | Patient | of | | | | | | | | | | + +--------+ +--------+ + + | VALERIE VILLAREAL | Person | Self [birth year] | Home: | [address] | | | [place] | | 1960 | [phone] | [place] | | | [place] | | | [phone] | + +--------+ +--------+ + +
--- OUTSIDE RECORDS SUMMARY | ~2018-02-09 | XMS | Clinical Summary ---
Demographics + + + | Address | [address] | | | [place] [address] | + + + | Home Phone | | + + + | Preferred Language | Unknown | + + + | Marital Status | | + + + | Restorationism Affiliation | Unknown | + + + | Race | Unknown | + + + | Ethnic Group | Unknown | + + + Author + + + | Author | [facility] | + + + | Organization | [facility] | + + + | Address | Unknown | + + + | Phone | Unavailable | + + + Support + + +---------+ + | Name | Relationship | Address | Phone | + + +---------+ + | Nicky Moon | ECON | Unknown | | + + +---------+ + Care Team Providers + +------+ + | Care Weapons Officer Naval [employer] Name | Role | Phone | + [...] +------+-------+ + | MEDICARE | MEDICA | [id number] | | | [address] | | | RE | | | | [place], [place] [phone] | | | IP-OP | | | | | + +--------+ +------+-------+ + | - WPS - | TRICAR | [id number] | | | [address] [address] | | | [place] | | | | [place] | | | LIFE | | | | [phone] | + +--------+ +------+-------+ + + +--------+ +--------+ + + | Guarantor Name | Accoun | Relation to | Date | Phone | Billing Address | | | t Type | Patient | of | | | | | | | | | | + +--------+ +--------+ + + | VALERIE VILLAREAL | Person | Self | [birth year] | Home: | [address] | | | [place] | | 1960 | [phone] | [place] | | | [place] | | | [phone] | + +--------+ +--------+ + +
[~2018-02-09 16:15] MED LIST changes: +CLONAZEPAM1 MG PO
[2018-02-09] MEDS ORDERED: AMPHETAMINE SAL10 MG PO (16:24)
[2018-02-09] MEDS ORDERED: LIOTHYRONINE S25 MCG PO (16:24)
== END 2018-02-09 17:41 | disposition home or self-care (01) ==
LOC: ED 16:15
DX: G43.909 Migraine, unspecified, not intractable, without status migrainosus (principal); F32.9 Major depressive disorder, single episode, unspecified; F31.9 Bipolar disorder, unspecified; Z86.73 Personal history of transient ischemic attack (TIA), and cerebral infarction without residual deficits; Z87.891 Personal history of nicotine dependence; Z79.899 Other long term (current) drug therapy
CPT/HCPCS: 96361; 96374; 96375; 99284; J1200; J1885; J2765; J7030

== ENCOUNTER 2018-05-09 04:49 | Emergency (ER) | payer OTHER, MEDICARE ==
[~2018-05-09] VITALS: Ht 162.6 cm; Wt 75.2 kg
[~2018-05-09 04:49] MED LIST changes: +AMPHETAMINE SAL10 MG PO; +IRON325 M1 PO; +LIOTHYRONINE S25 MCG PO; +RIZATRIPTAN10 M1 PO; +SENNA LAX8.6 MG PO; +VITAMIN C500 M1 PO; +VITAMIN D5000 UNI1 PO
== END 2018-05-09 06:53 | disposition home or self-care (01) ==
LOC: ED 04:49
DX: G43.909 Migraine, unspecified, not intractable, without status migrainosus (principal); F31.9 Bipolar disorder, unspecified; Z86.73 Personal history of transient ischemic attack (TIA), and cerebral infarction without residual deficits; Z87.891 Personal history of nicotine dependence; Z88.5 Allergy status to narcotic agent; Z79.899 Other long term (current) drug therapy
CPT/HCPCS: 96374; 96375; 99283-25; J1200; J1885; J2765; J7030

== ENCOUNTER 2018-06-21 10:53 | Inpatient (IN) | payer OTHER, MEDICARE ==
[~2018-06-21] VITALS: Ht 162.6 cm; Wt 75.2 kg
--- NOTE | 2018-06-22 16:24 | NUR ---
PATIENT AND HERE TODAY FOR PREADMISSION APPOINTMENT SHE IS SCHEDULED TO HAVE A RIGHT TOTAL KNEE REPLACEMENT AND HARDWARE REMOVAL FOR PATELLA ON 07-05-18. PATIENT HAS HAD HER LEFT KNEE REPLACED AND APPEARS TO BE DOING WELL. SHE REPORTS 2 STEPS TO GET INTO HER HOUSE AND NO STEPS IN HER HOUSES. SHE STILL HAS WALKER AND SHOWER BENCH BUT NO RAILS IN HER HOME. HER WILL BE HERE TO TRANSPORT HER HOME WHEN DISCHARGED. SHE WILL DO HER PHYSICAL THERAPY AT [facility] THIS INFORMATION WILL BE FAXED TO DR COYNE OFFICE AND CASE MANAGEMENT FOR FURTHER FOLLOW UP.
[2018-07-04] MEDS ORDERED: BUPROPION HCL200 MG PO (10:29)
--- NOTE | 2018-07-05 10:01 | NUR ---
07/05/18 1001 Re[address]ina 0929- PT ARRIVES TO PACU. PT AROUSABLE TO VOICE. PT REPORTS NO PAIN OR NAUSEA. RESP EVEN AND UNLABORED. PT HAS A ROPIVACAINE PUMP IN PLACE WITH NO CLAMP IN PLACE. OXYGEN SAT MID TO HIGH 90'S ON RA. 0936- PT EATING ICE CHIPS TOLERATING WELL. 0937- CRYOCUFF PLACED BY KARMA HIGGINS WITH PILLOW CASE IN BETWEEN. 0940- PT ENCOURAGED TO COUGH AND DEEP BREATHE OXYGEN SAT DECREASED TO 90% ON RA. PT IS ABLE TO PERFORM THESE TASKS AND OXYGEN SAT INCREASED TO THE HIGH 90'S ON RA. 1000- PT REMAINS EATING ICE CHIPS AND TALKING WITH THIS RN WITHOUT FALLING ASLEEP. PT IS ABLE TO MOVE HER FEET, NUMBNESS REMAINS. RESP EVEN AND UNLABORED.
--- NOTE | 2018-07-05 10:10 | NUR ---
PT ARRIVED FROM PACU. PT AWAKE AND ORIENTED, CHATTING WITH . CONTINIOUS PULSE OX READS 96%. SPINAL LEVEL S2. PT DENIES PAIN AND NAUSEA. PT TOLERATING SIPS OF WATER. PT DEMONSTRATES USE OF INCENTIVE SPIROMETER REACHING 1750. NICHELLE DRESSING INTACT, GREEN LIGHT FLASHING ON CANISTER. DRESSING C/D/I. MEDICATION GIVEN. SCD'S, BHAVANA HOSE, HEEL PROTECTORS, AND CRYO CUFF IN PLACE. BED RAILS UP. CALL LIGHT WITHIN REACH. BED ALARM ON.
--- NOTE | 2018-07-05 10:46 | OR ---
[facility] [address] [place], [place] [address] Signed DATE OF OPERATION: 07/05/2018 SURGEON: Lois Barros MD PREOPERATIVE DIAGNOSIS: Degenerative joint disease right knee with retained hardware from patellar fracture. POSTOPERATIVE DIAGNOSIS: Degenerative joint disease right knee with retained hardware from patellar fracture. PROCEDURE PERFORMED: 1. Right total knee arthroplasty with computer navigation. 2. Hardware removal, right patella. HOT MILL SHEARER: DAVID Aragon was present and critical for all portions of the procedure. ANESTHESIA: Spinal. BLOOD LOSS: Minimal. TOURNIQUET TIME: 69 minutes. IMPLANTS: Hien Triathlon size 4 femur, 3 tibia, 11 mm insert, and 32 patella. BRIEF HISTORY: Valerie is a 57-year-old female with a history of patellar fracture when she was scheduled for her knee replacement the 1st time. We fixed it with screws and wires and she healed uneventfully. She presented today for a total knee replacement with removal of hardware as necessary. Risks and benefits of operative treatment were discussed with her and she elected to proceed. DESCRIPTION OF PROCEDURE: Once consent was obtained, she was taken to the operating room. After adequate Electronically Signed By: LOIS BARROS MD 07/05/18 1046 PATIENT NAME: VALERIE MICHELLE OPERATIVE REPORT DATE OF : 62 REPORT #: [id number] PHYSICIAN: LOIS BARROS MD PCP: LACY PALOMARES MD REPORT IS CONFIDENTIAL AND NOT TO BE RELEASED WITHOUT AUTHORIZATION [facility] [address] [facility] [address] [place], [place] [address] Signed anesthesia, she was placed on operating table. All downside pressure points well padded. The right leg was prepped and draped in a standard sterile fashion all the way up to proximal thigh tourniquet, a hip bump was placed. The previous incision was marked out. We started the procedure without the tourniquet, however, she had significant bleeding with fairly high pressure. We then exsanguinated the leg with an Esmarch and used an inflated tourniquet to 250 mmHg. The skin incision was carried down to the fascia and the skin flaps were elevated medially and laterally. The two twists for the tension band were then untwisted and the wires were cut and removed. The screws were left in place for the time being. The median parapatellar arthrotomy was then performed and the infrapatellar fat pad was excised. The MCL was elevated of a sleeve around the posterior medial corner. The knee was flexed. Anterior horns of menisci were transected, ACL was already gone. The navigation guide was pinned to the distal femur and the femur was registered with the computer. The distal femoral cutting block was then pinned in neutral alignment and the cut was made. 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 The distal femur sized to a 4 which matched the opposite side. The AP cutting block was pinned in alignment with epicondylar axis and the anterior, posterior, and chamfer cuts were made. Again minimal cuts were made on the lateral side due to the hypoplasia. The osteophytes were cleaned up and attention was turned to proximal tibia. The menisci removed to allow better visualization. The navigation guide was pinned to the top of the tibia and the tibia was registered with the computer. The cutting block was then pinned in neutral alignment and the cut was made with care taken to protect the patellar tendon and MCL. Bone was excised as were any meniscal remnants. Posterior osteophytes were removed off the femur and posterior release performed. Flexion-extension gaps were sized, found to be symmetric at 11 mm. The trials were then positioned, knee was taken through range of motion and found to be quite stable. Careful evaluation of the patella showed a marked erosion of the lateral patellar facet. I thought there was enough bone to go ahead and resurface it, however, the inferior screw had to be removed. The bone cut was made and the superior screw was marked out on the cut surface of the patella so that we could avoid it with the drill holes for the patellar button. The patella was then drilled and sized to a 32 mm patella. Once this was completed, attention was turned back to the femur and the distal femoral holes were drilled and the proximal tibia was finished using the keel punch. All bone surfaces were pulse lavaged and packed with dry Ray-Dov. The cement was mixed. When it reached proper consistency, it was placed on all implants on bone surfaces. Tibia was impacted into position first followed by the polyethylene, all excess was removed. The femur was impacted into position. Again, any remaining overflow was removed and the knee was extended and nicely loaded. The patella was clamped into position. Any overflow was removed. During the cement setting procedure the knee was filled with Irrisept wound irrigant and allowed to set. This was then evacuated, knee was flexed and remaining cement was removed using osteotomes. The periarticular soft tissues and capsule were injected with 100 mL ropivacaine Toradol mixture. The On-Q pump was then placed percutaneously from middle thigh down into the Electronically Signed By: LOIS BARROS MD 07/05/18 1046 PATIENT NAME: VALERIE MICHELLE OPERATIVE REPORT DATE OF : 62 REPORT #: [id number] PHYSICIAN: LOIS BARROS MD PCP: LACY PALOMARES MD REPORT IS CONFIDENTIAL AND NOT TO BE RELEASED WITHOUT AUTHORIZATION [facility] [address] [place] [address] [place] [address] Signed suprapatellar region and using a blunt rongeur we were able to place it up into the adductor canal atraumatically. The arthrotomy was then closed using #2 Stratafix, #0 Stratafix for subcutaneous tissue. We did irrigate the knee throughout the procedure with antibiotic irrigation under pulse lavage. A total of 400 mL of the Irrisept was used. The wound was closed with a Super Glue mesh and a NICHELLE wound VAC dressing was placed. The patient was awakened and taken to recovery room in satisfactory condition. All sponge, needle, and instrument counts were correct. Lois Barros MD BA/MODL /[id number] Copies: ~ Electronically Signed By: LOIS BARROS MD 07/05/18 1046 PATIENT NAME: VALERIE MICHELLE OPERATIVE REPORT DATE OF : 62 REPORT #: [id number] PHYSICIAN: LOIS BARROS MD PCP: LACY PALOMARES MD REPORT IS CONFIDENTIAL AND NOT TO BE RELEASED WITHOUT AUTHORIZATION
--- NOTE | 2018-07-05 11:03 | NUR ---
VITALS AND ASSESSMENT DUE. THIS RN TO BEDSIDE. PT CONTINUES TO DENY PAIN AND NAUSEA. TOLERATING CRACKERS AND WATER, DIET UPGRADED. SPINAL LEVEL AT L2 BUT PT STATES "I CAN FEEL MY RIGHT FOOT COMING BACK SLOWLY." VITALS TAKEN. PIV SALINE LOCKED AFTER TAX, ALCOHOL CAPS APPLIED. CRYO CUFF, SCD'S, BHAVANA HOSE, HEEL PORTECTORS INPLACE. BED RAILS UP. CALL LIGHT WTHIN REACH.
--- NOTE | 2018-07-05 12:10 | NUR ---
VITLA AND ASSESSMENT DUE. THIS RN TO BEDSIDE. VITALS TAKEN. ASSESSMENT DONE. PT REPORTS 5/10 PAIN "IN THE BACK OF MY KNEE." PT REQUESTS PAIN MEDICATION, SEE MAR FOR MEDICATION GIVEN. PT TOLERATING REGULAR DIET. DRESSING SHOWS DIME SIZE RED SPOTS X3. BUZZINE NOTED ON NICHELLE CANISTER, DRESSING PRESSED TO SKIN, BUZZING STOPS, GREEN LIGHT FLASHING. ON-Q PUMP IN PLACE. CMS INTACT, SPINAL RESOLVED. CRYO CUFF, SCD'S, BHAVANA HOSE, HEEL PROTECTORS IN PLACE. NO ADDTIIONAL REQUESTS OR COMPLAINTS AT THIS TIME. BED RAILS UP. CALL LIGHT WITHIN REACH. BED ALARM ON.
--- NOTE | 2018-07-05 13:10 | NUR ---
VITALS AND ASSESSMENT DUE. THIS RN TO BEDSIDE. VITALS TAKEN. ASSESSMENT DONE. PT REPORTS 6/10 PAIN, AND STATES "THE PAIN MEDICINE ISN'T TAKING THE EDGE OFF." NOTIFIED. PT SMILING AND CHATTING WITH FRIENDS. DRESSING CONTINUES TO SHOWS SMALL AMOUNT OF DRAINAGE. GREEN LIGHT FLASHING ON NICHELLE CANISTER, ON-Q IN PLACE SET AT 8. WATER AND ICE REFILLED. CRYO CUFF PLACED TO BACK OF KNEE FOR PAIN CONTROL. ICE PACK PLACED TO FRONT. PT DEMONSTRATES USE OF I.S. REACHING 2250. 2PA UP TO COMODE. PT VOIDS 125ML WITHOUT ISSUE . 2PA BACK TO BED. CRYO CUFF, SCD'S, BHAVANA HOSE, AND HEEL PROTECTORS IN PLACE. PULOSE OX READING 95% ON ROOM AIR. CALL LIGHT WITHIN REACH. BED ALARM ON. BED RAILS UP.
--- NOTE | 2018-07-05 14:40 | NUR ---
MEDICATION DUE. THIS RN TO BEDSIDE. PT REPORTS / PAIN THAT IS GETTING WORSE. BEEF CATTLE SPECIALIST TO BE CALLED. PT ASSISTED UP TO COMODE. VOIDS 1100ML. PT BACK TO BED AND NOW WORKING WITH PHYSICAL THERAPY. MEDICATIONS GIVEN. CALL LIGHT WITHIN REACH.
--- NOTE | 2018-07-05 14:49 | NUR ---
PATIENT UP FROM BSC TO BED, 2 PA. PT AND RN IN ROOM. CALL LIGHT IN REACH. NO FURTHER NEEDS AT THIS TIME.
--- NOTE | 2018-07-05 14:56 | NUR ---
MIRNA MCCLURE CALLED REGARDING PAIN. CALL REFERED TO . GIVES ORDERS FOR TORDOL NOW. PHARAMCY NOTIFIED TO CHECK DOSE.
--- NOTE | 2018-07-05 15:35 | NUR ---
MEDCATIONS DUE. PT REPORTING PAIN AT 03/20. MEDICATION GIVEN PER MD ORDER. PAIN MANAGEMENT PLAN DISCUSSED WITH PT. NEW ICE TO CRYO CUFF. PT ASSISTED UP TO COMODE, VOIDS WITHOUT ISSUE. PT BACK TO BED. ASSESSMENT DONE. NICHELLE DRESSING NOW 50% SATURATED. CMS INTACT. PT DENIES NAUSEA. PT DEMONSTRATES USE OF I.S. REACHING 1750. O2 SHOWES 97% ON ROOM AIR. PT ENCORUAGED TO REST. PT DENIES ADDITIONAL REQUESTS OR COMPLAINTS AT THIS TIME. BED RAILS UP. CALL LIGHT WITHIN REACH. BED ALARM ON.
--- NOTE | 2018-07-05 16:27 | NUR ---
PAIN MEDICATION DUE. THIS RN TO BEDSIDE. PT RESTING WITH EYES CLOSED, RR = 16BPM. PT REQUESTED THIS RN TO WAKE HER UP FOR PAIN MEDICATION. PT AWAKENS TO VOICE. PT RATES PAIN AT 9/10. SEE MAR FOR MEDICATION GIVEN. PT BACK TO RESTING. CYRO CUFF, SCD'S, BHAVANA HOSE, AND HEEL PROTECTORS IN PLACED. BED RAILS UP. BED ALARM ON.
--- NOTE | 2018-07-05 17:23 | NUR ---
PT POST OP DAY ZERO FOR RIGHT TKA. TOLERATING REGULAR DIET. UP WITH PHYSICAL THERAPY X1 THIS SHIFT, 1PA, FWW. NICHELLE DRESSING 50% SATURATED WITH RED DRAINAGE, GREEN LIGHT FLASHING. CMS INTACT, SPINAL RESOLVED. PT HAS 4-10/10 PAIN. Q4 OXY GIVEN X2, TORDOL, AND CELEBREX GIVEN. PT VOIDING QUANTITY SUFFICIENT. CONTINIOUS PULSE OX IN PLACE, O2 SATURATION ABOVE 92% ON ROOM AIR. PIV SALINE LOCKED. ON-Q PUMP IN PLACE SET AT 8. CRYO CUFF, SCD'S, BHAVANA HOSE, AND HEEL PROTECTORS IN PLACE. PT USESING CALL LIGHT APPROPRIATLY.
--- NOTE | 2018-07-05 18:12 | NUR ---
MEDICATION DUE. THIS RN TO BEDSIDE. PT REPORTS 4/10 PAIN. MEDICATION GIVEN. PT EATING DINNER WITH . CRYO CUFF, SCD'S, BHAVANA HOSE, AND HEEL PROTECTORS IN PLACE. BED RAILS UP. CALL LIGHT WITHIN REACH. AT BEDSIDE.
--- NOTE | 2018-07-05 18:44 | NUR ---
PATIENT IN BED EATING, FAMILY IN ROOM. FRESH WATER GIVEN. CALL LIGHT IN REACH. NO FURTHER NEEDS AT THIS TIME.
--- NOTE | 2018-07-05 19:05 | NUR ---
RECEIVED REPORT FROM DAY SHIFT RN. PATIENT IS RESTING IN BED WATCHING TV AND VISITING WITH . PATIENT DENIES ANY PAIN. NO NEEDS NOTED. CALL LIGHT IN REACH.
--- NOTE | 2018-07-05 21:00 | NUR ---
PATIENT ASSESMENT COMPLETED. PATIENTS EVENING MEDICATIONS GIVNE PER ORDER. PATIENT RATES PAIN AT A 4/10. PATIENT GIVEN PRN PAIN MEDICATION PER ORDER. PATIENT IS RESTINGIN BED. PATIENT HAS TEDHOSE, SCDS, AND HEEL PROTECTORS IN PLACE ON BILAT LOW EXT. PATIENT HAS CRYO IN PLACE ON RIGHT KNEE, CRYO REFILLED WITH ICE. PATIENT HAS ON-Q PUMP IN PLACE. NICHELLE IN FLASHING GREE AND HAS 50% SATURATION, NO CHANGE SINCE START OF SHIFT. PATIENT IS ON RA, CPOX IN PLACE. PATIENT IS AAOX3. NO FURTHER NEEDS NOTED AT THIS TIME. CALL LIGHT IN REACH.
--- NOTE | 2018-07-05 23:52 | NUR ---
PATIENT IS RESTING IN BED WATCHING TV. PATIENT DENIES ANY PAIN. PATIENT DENIES ANY NEEDS. CALL LIGHT IN REACH.
--- NOTE | 2018-07-06 01:29 | NUR ---
PATIENTS VITALS TAKEN AND RECORDED. PATIENT ASSISTED TO THE RESTROOM A SBA W/FWW. PATIENT TOLERATES AMBULATION WELL. PATIENT WAS ABLE TO VOID. PATIENT IS BACK IN BED RESTING. SCDS, TEDHOSE, AND HEEL PROTECTORS IN PLACE ON BILAT LOW EXT. PATIENTS CRYO REFILLED WITH ICE AND APPLIED TO RIGHT KNEE. PATIENTS NICHELLE HAS INCREASED RED DRAINAGE NOTED. NICHELLE HAS GREEN LIGHT FLASHING. ON-Q IN PLACE, DIAL COVER TAPED SHUT IT WILL NOT STAY SHUT. PATIENT RATES PAIN AT A 4/10. PATIENT GIVEN PRN PAIN MEDICAITON PER ORDER. SNACK PROVIDED. PATIENT IS AAOX3. NO FURTHER NEEDS NOTED. CALL LIGHT IN REACH.
--- NOTE | 2018-07-06 03:00 | NUR ---
PATIENT IS RESTING IN BED WATCHING TV. PATIENT DENIES ANY NEEDS. PATIENT DENIES ANY PAIN. CALL LIGHT IN REACH.
--- NOTE | 2018-07-06 05:00 | NUR ---
PATIENT RESTED ON/OFF THROUGHOUT THE SHIFT. PATIENT IS ON A REGULAR DIET AND TOLERATING IT WELL, NO COMPLAINTS OF NAUSEA. PATIENT IS ON RA, CPOX IN PLACE. PATIENT IS SL AND IV FLUSHES WELL. PATIENT HAS SCDS, HEEL PROTECTORS, AND TEDHOSE ON BILAT LOW EXT. ON-Q IN PLACE ON 8, LID TAPED SHUT. PATIENT HAS NICHELLE IN PLACE, 75% DRAINAGE NOTED UP INTO OPSITE, AND GREEN LIGHT IS FLASHING. CRYO APPLIED TO RIGHT KNEE. PATIENT RECEIVED PRN PAIN MEDICATION MULTIPLE TIMES. PATIENT HAS SCOPE PATCH BEHIND RIGHT EAR. PATIENT IS AAOX3, AND USES CALL LIGHT APPROPRIATELY. PATIENT IS A SBA W/FWW AND DOES WELL WITH AMBULATION.
--- NOTE | 2018-07-06 06:13 | NUR ---
LIMOUSINE RENTAL CLERK IN ROOM. PATIENT GIVEN MORNING MEDICATION OPER ORDER. PATIENT IS BACK TO BED FROM AMBULATION TO THE RESTROOM. PATIENT RATES PAIN AT A 7/10. PATIENT GIVEN PRN PAIN MEDICATION PER ORDER. PATIENT HAS SCDS, TEDHOSE, HEEL PROTECTORS IN PLACE. CRYO REFILLED WITH ICE. AAOX3. NO FURTHER NEEDS. CALL LIGHT IN REACH.
--- NOTE | 2018-07-06 06:26 | NUR ---
PATIENTS DRAINAGE HAS INCREASED UP INTO ON-Q TUBING UNDER MEPILEX. REINFORCED WITH X2 ABD AND JEWELL WRAP. ORIGINAL DRESSING LEFT INTACT. NICHELLE HAS GREEN LIGHT.
--- NOTE | 2018-07-06 07:15 | NUR ---
REPORT RECEIVED FROM KARMA SIMMONS. PT RESTING IN BED. ALERT AND ORIENTED. PT REPORTS 3/10 PAIN AND DENIES NAUSEA. DRESSING SATURATED AND LEAKING RED. KARMA SIMMONS, CALLING MD. CRYO CUFF, SCD'S, BHAVANA HOSE AND HEEL PROTECTORS IN PLACE. GREEN LIGHT FLASHING ON NICHELLE DRESSING. BED RAILS UP. CALL LIGHT WITHIN REACH.
--- NOTE | 2018-07-06 07:59 | NUR ---
MORNING ASSESSMENT DUE. THIS RN TO BEDSIDE. PT REPORTS 3/10 PAIN THAT "ISN'T THAT BAD." PT DENIES NASUEA. ASSESSMENT DONE. CMS INTACT. DRESSING 90% SATURATED. MD TO BEDSIDE FOR ROUNDS. ORDERS TO LEAVE DRESSING IN PLACE AND HAVE PT ON BED/CHAIR REST TODAY WITH NO PHYSICAL THERAPY. PT VERBALIZES UNDERSTANDING OF PLAN OF CARE. GREEN LIGHT FLASHING ON NICHELLE DRESSING, ON-Q PUMP SET AT 8. DRESSING 90% SATURATED AT THIS TIME WITH A DIME SIZE SPOT ON THE ABD PAD. MEDICATIONS GIVEN. PT EATING BREAKFAST. CRYO CUFF, SCD'S, BHAVANA HOSE, AND HEEL PROTECTORS IN PLACED. CONTINIOUS PULSE OX READS. 96% ON ROOM AIR. BED RAILS UP. CALL LIGHT WITHIN REACH. NO ADDITIONAL REQUESTS OR COMPLAINTS AT THIS TIME.
--- NOTE | 2018-07-06 08:11 | NUR ---
Medications reconciled with pharmacy records and patient interview
--- NOTE | 2018-07-06 08:23 | NUR ---
PATIENT UP TO CHAIR FROM BED, SBA FWW. CALL LIGHT IN REACH. NO FURTHER NEEDS AT THIS TIME.
--- NOTE | 2018-07-06 09:48 | NUR ---
PATIENT IN CHAIR TALKING ON PHONE. LINENS CHANGED. AM CARE DONE. CRYO FILLED. FRESH WATER GIVEN. CALL LIGHT IN REACH. NO FURTHER NEEDS AT THIS TIME.
--- NOTE | 2018-07-06 09:55 | NUR ---
PT UP TO CHAIR, 1PA, FWW. PT REPORTS 5/10 PAIN (SEE MAR FOR MEDICATION GIVEN). DRESSING ASSESSED, NOW 100% SATURATED. PT ENCOURAGED TO REST AND NOT TO KNEE EXERCISES. PT VERBALIZES UNDERSTANDING. ZOYA NURSE NOTIFIED OF CHANGE. SCD'S, BHAVANA MCDERMOTT, CRYO CUFF IN PLACED. PT LISTENING TO MUSIC, NO REQUESTS OR COMPLAINTS. CALL LIGHT WITHIN REACH.
--- NOTE | 2018-07-06 11:32 | NUR ---
IN TO CHECK ON PT. SHE IS ALERT, ORIENTED, SITTING IN CHAIR WITH LEG UP. PT WAS READING HER BIBLEL AND SEEMED HAPPY TO HAVE COMPANY. VERY MUCH ENJOYING THE SUNLIGHT AND VIEW OUT HER WINDOW. CONFINED TO HER BED/CHAIR TODAY PER DR MEJIA ORDERS-COPING. PT REQUESTED PRAYER, WILL FOLLOW NEEDED
--- NOTE | 2018-07-06 11:53 | NUR ---
NOON ASSESSMENT DUE. PT CALL LIGHT ON. THIS RN TO ROOM. PT REQUESTS ASSISTANCE UP TO RESTROOM. 1PA, FWW UP TO RESTROOM. PT VOIDS 1100ML WITHOUT ISSUE. EDUCATION DONE REGARDING "HOLDING" URINE. PT VERBALIZES UNDERSTANDING AND STATES SHE WILL CALL MORE FREQEUENTLY. ASSESSMENT DONE. DRESSING NOW 98% SATURATED WITH RED DRAINAGE. GREEN LIGHT FLASHING ON NICHELLE CANISTER. MINIMAL DRAINAGE NOTED ALONG ON-Q PUMP LINE ON PROXIMAL DRESSING. NO DRAINGE NOTED AROUND EDGES OF NICHELLE DRESSING OR DISTALLY. ON-Q SET AT 8. CMS INTACT. CONTINIOUS PULSE OX DC'D PER PROTOCOL. CRYO CUFF, SCD'S, BHAVANA HOSE IN PLACE. PT EATING LUNCH AND WATCHING TV UP IN CHAIR. WATER REFILLED. CALL LIGHT WITHIN REACH.
--- NOTE | 2018-07-06 13:06 | NUR ---
PT CALL LIGHT ON. THIS RN TO ROOM. PT UP AND WALKING IN ROOM. PT STATES SHE WAS GOING BACK TO THE CHAIR FROM THE RESTROOM. FALL RISK, SAFETY, AND MD ORDER EDUCATION DONE. PT VERBALIZES UNDERSTANDING AND DEMONSTRATES USE OF CALL LIGHT. PT STATES "NEXT TIME I'LL CALL, I PROMISE." SCD'S, AND CRYO CUFF PLACED BACK TO KNEE. NO NEW DRAINAGE NOTED. PT WATCHING TV. AND WORKING ON PHONE. NO ADDITIONAL REQUESTS OR COMPLAINTS. CALL LIGHT WITHIN REACH.
--- NOTE | 2018-07-06 14:21 | NUR ---
MEDICATION DUE. THIS RN TO BEDSIDE. PT REPORTS 11/17 PAIN "ESPICIALLY WHEN I MOVE." MEDICATION GIVEN (SEE MAR). PT WORKING WITH CONDUIT HELPER FOR VITALS AND VOIDING. NO ADDITIONAL REQUESTS OR COMPLAINTS. CALL LIGHT WITHIN REACH.
--- NOTE | 2018-07-06 14:26 | NUR ---
PATIENT UP TO BATHROOM AND BACK TO CHAIR, 1PA FWW. CRYO FILLED. FRESH WATER GIVEN. CALL LIGHT IN REACH. NO FURTHER NEEDS AT THIS TIME. RN IN ROOM.
--- NOTE | 2018-07-06 15:11 | NUR ---
THIS RN TO ROOM TO CHECK ON PT. DRESSING ASSESSED. 99% SAURATED WITH NO EXCESSIVE DRAINAGE NOTED. PT REPORTS 2/10 PAIN AND IS SMILING, LAUGHING, AND PLAYING CARDS WITH . PT UP TO CHAIR. NO ADDITIONAL REQUESTS OR COMPLAINTS. MD CALLED AND UPDATED ON PT AND DRESSING CONDITION. NO NEW ORDERS.
--- NOTE | 2018-07-06 16:37 | NUR ---
AFTERNOON ASSESSMENT DUE. THIS RN TO BEDSIDE. PT PLAYING CARDS WITH . PT REPORTS 3/10 PAIN ADN DENIES NAUSEA. PT DENIES NEED FOR ADDITONAL PAIN MEDICATION. ASSESSMENT DONE. CMS INTACT. NO NEW DRAINAGE NOTED ON DRESSING, 99% SATURATED. GREEN LIGHT FLASHING ON NICHELLE DRESSING. ON-Q PUMP SET AT 8. PT UP TO CHAIR. DEMONSTRATES IS USE AND REACHES 2500. CRYO CUFF, SCD'S, BHAVANA HOSE, IN PLACE. NO ADDITIONAL REQUESTS OR COMPLAINTS AT THIS TIME. CALL LIGHT WITHIN REACH.
[2018-07-06] MEDS ORDERED: ZYRTEC10 MG PO (17:07)
--- NOTE | 2018-07-06 17:36 | NUR ---
PT POST OP DAY 1 AFTER RIGHT TKA. INCREASED BLEEDING THIS AM, PT PLACED ON BED/CHAIR REST PER MD. TAX GIVEN. DRESSING NOW 99% SATURATED WITH LITTLE ADDITIONAL DRAINGE SINCE BEGINING OF THIS SHIFT. PAIN WELL CONTROLED THIS SHIFT 0-7/10 WITH Q4 OXYCODONE. PT UP TO CHAIR FOR MOST OF THIS SHIFT. CMS INTACT. GREEN LIGHT FLASHING ON NICHELLE DRESSING. ON-Q PUMP SET AT 8. PT VOIDING QUANTITY SUFFICIENT. DENIES NAUSEA THIS SHIFT. BHAVANA MCDERMOTT, SCD'S, HEEL PROTECTORS, AND CRYO CUFF IN PLACE. PT USING CALL LIGHT APPROPRIATLY.
--- NOTE | 2018-07-06 18:01 | NUR ---
MEDICATION DUE. THIS RN TO BEDSIDE. PT REPORTS 11/17 PAIN. SEE MAR FOR MEDICATION GIVEN. PT ASSISTED BACK TO BED. CRYO CUFF, SCD'S, BHAVANA HOSE, HEEL PROTECTORS IN PLACE. PT VISITING WITH . WATER REFILLED. BED RAILS UP. CALL LIGHT WITHIN REACH.
--- NOTE | 2018-07-06 18:31 | NUR ---
PATIENT IN BED RESTING. FRESH WATER GIVEN. CRYO FILLED. CALL LIGHT IN REACH. NO FURTHER NEEDS AT THIS TIME.
--- NOTE | 2018-07-06 19:00 | NUR ---
CHARGE ROUNDING DONE AT BEDSIDE. PATIENT RESTING IN BED. DENIES ANY NEEDS AT THIS TIME. CALL LIGHT AND BEDSIDE TABLE WITHIN REACH.
--- NOTE | 2018-07-06 19:10 | NUR ---
RECEIVED REPORT FROM DAY SHIFT RN. PATIENT IS RESTING IN BED WATCHING TV. PATIENT DENIES ANY NEEDS AT THIS TIME. CALL LIGHT IN REACH.
--- NOTE | 2018-07-06 22:00 | NUR ---
PATIENT ASSESMENT COMPLETED. PATIENTS EVENING MEDICATIONS GIVEN PER ORDER. PATIENT RATES PAIN AT A 9/10. PATIENT GIVEN PRN PAIN MEDICATION PER ORDER. PATIENTS CRYO REFILLED WITH ICE. PATIENT REPOSITIONED IN BED. PATIENT COMPLAINS OF PAIN IN HER RIGHT UPPER THIGH. ICE PACK APPLIED TO RIGHT UPPER THIGHT. PATIENT CONTINUES TO BE ON BEDREST. PATIENTS NICHELLE IS FLASHING GREEN AND REMAINS 99% SATURATED. ON-Q IN PLACE ON 8. SCDS, TEDHOSE, AND HEEL PROTECTORS IN USE ON BILAT LOW EXT. PATIENT IS ON RA. AAOX3. SNACK PROVIDED. CRYO APPLIED TO RIGHT KNEE. NO FURTHER NEEDS NOTED. CALL LIGHT IN REACH.
--- NOTE | 2018-07-06 23:44 | NUR ---
PATIENTS PAIN RE-ASSESED. PATIENT RATES PAIN AT A 7/10. PATIENT POWELL NOT HAVE ANY PAIN MEDICATION AVAIALBLE AT THIS TIME. OFFERED TO CALL MD TO DISCUSS PAIN CONTROL. PATIENT REFUSED. PATIENT STATED "IT HURTS BEHIND MY KNEE". PATIENTS CRYO TURNED AROUND. ICE PACKS PLACED ON KNEE, UPPER THIGH AND JONES. PATIENT PROVIDED WITH SNACK. PATIENT ASKED RN TO COME BACK AT MIDNIGHT TO CHECK ON HER. NO FURTHER NEEDS NOTED. CALL LIGHT IN REACH.
--- NOTE | 2018-07-07 00:07 | NUR ---
PATIENTS PAIN RE-EVALUATED. PATIENT RATES PAIN AT A 6.5-7/10. PATIENT DENIES THE NEED FOR ANY PAIN MEDICATION AT THIS TIME. PATIENT STATED "MY PAIN IS IMPROVING WITH THE EXTRA ICE". WHEN ASKED IF SHE COULD REST COMFORTABLY. PATIENT STATED "YES". PATIENT IS RESTING IN BED CHATTING ON HER PHONE. NO FURTHER NEEDS NOTED. CALL LIGHT IN REACH.
--- NOTE | 2018-07-07 01:25 | NUR ---
PATIENT RATES PAIN AT A 4.5-5/10. PATIENT GIVEN PRN PAIN MEDICATION PATIENT CONTINUES TO REST IN BED. PATIENTS NICHELLE DRESSING CONTINUES TO BE 99% SATURATED, NO CHANGES NOTED. SNACK PROVIDED. NO FURTHER NEEDS NOTED. CALL LIGHT IN REACH.
--- NOTE | 2018-07-07 02:48 | NUR ---
PATIENTS PAIN RE-EVALUATED. PATIENT RATES PAIN AT A 2/10. PATIENT DENIES ANY NEED FOR PAIN MEDICATION AT THIS TIME. NO NEEDS NOTED. CALL LIGHT IN REACH.
--- NOTE | 2018-07-07 03:37 | NUR ---
PATIENT IS RESTING IN BED WITH EYES CLSOED, RR 18. CALL LIGHT IN REACH.
--- NOTE | 2018-07-07 04:22 | NUR ---
PATIENT RESTED WELL DURING THE LATER PART OF THE SHIFT. PATIENT IS ON A REGULAR DIET, TOLERATING WELL, AND NO COMPLAINTS OF NAUSEA. PATIENT HAS HEEL PROTECT, SCDS, AND TEDHOSE ON BILAT LOW EXT. PATIENT HAS NICHELLE DRESSING THAT IS 99% SATURATED, NO NEW DRAINAGE NOTED. NICHELLE IS FLASHING GREEN. ON-Q IN PLACE AND SET TO 8. PATIENT IS SL AND IV FLUSHES WELL. PATIENT IS A SBA W/FWW. PATIENT HAS BEEN ON BEDREST W/BSC TO VOID. PATIENT HAS RECEIVED PRN PAIN MEDICATION MULTIPLE TIMES. PATIENT IS AAOX3. PATIENT USES CALL LIGHT APPROPRIATELY.
--- NOTE | 2018-07-07 05:38 | NUR ---
PATIENT ASSISTED TO THE BSC. PATIENT IS A SBA W/FWW. PATIENT WAS ABLE TO VOID. WHEN INQUIRING ABOUT PATIENTS PAIN. PATIENT STATED "ITS A 24/10 WHEN I AM UP, BUT WHEN I AM IN BED IT IS A 4/10". PATIENT GIVEN PRN PAIN MEDICATION PER ORDER. PATIENT GIVEN SCHEDULE MEDICATION PER ORDER. PATIENT IS BACK IN BED RESTING. PATIENT HAS SCDS, TEDHOSE, AND HEEL PROTECTORS ON BILAT LOW EXT. PATIENTS VITALS TAKEN AND RECORDED BY PACKAGE CHECKER. PATIENTS CRYO APPLIED TO BACK OF KNEE. AND X3 ICE PACKS APPLIED TO THIGH, KNEE, AND JONES. PATIENT DENIES ANY FURTHER NEEDS. PATIENTS DRESSING DRAINAGE REMAINS UNCHANGED THROUGH THE SHIFT. CALL LIGHT IN REACH.
--- NOTE | 2018-07-07 07:05 | NUR ---
Bedside report received from KARMA Little. Pt resti ng supine in bed, call light and h20 in reach. no needs voiced and pt appears to be in no acute distress. right vijaya dsg saturated but flashing green and per KARMA Little no increased drainage through the night. On Q set to 8, cryo cuff in place.
--- NOTE | 2018-07-07 08:35 | NUR ---
pt resting supine in bed, states she recently got back from restroom and reports pain of "24 out of 10" no facial grimmace, or other objective signs of pain noted. scheduled celebrex, gabapentin and other am meds administered. assessment completed. cryo cuff and ice packs applied to right knee. vijaya dsg appears unchanged from how it looked at shift report. cap refill <1 second to right foot nad pt denies numbness or tingling. call light and h20 in reach. will notify Dr Barros of pt's reported pain level. Pt smiling and appears to be in no acute distress. No further needs or concerns voiced.
--- NOTE | 2018-07-07 08:45 | NUR ---
DR MEJIA NOTIFIED OF PT'S REPORTED "24/10 PAIN" TO RIGHT KNEE. ALSO NOTIFIED THAT FOR NOC SHIFT PT REPORTED HIGH LEVEL OF PAIN PRIOR TO CELEBREX ADMINISTRATION WHICH WAS BROUGHT DOWN TO TOLERABLE LEVEL AFTER CELEBRAX WAS ADMINISTERED.PT DOES HAVE HX OF DEPRESSION AND ANXIETY AND ANXIETY MAY BE INCREASING PT'S SENSITIVITY TO PAIN. MD AWARE PT IS SMILING WITH NO OBJECTIVE SIGNS OF PAIN. NO NEW ORDERS AT THIS TIME.
--- NOTE | 2018-07-07 11:05 | NUR ---
In to check on patient, pt resting supine in bed, eyes closed and respirations even and unlabored. Pt alert to noise and states her pain is tolerable and she is comfortable. fresh ice packs provided and polar ice machine filled with ice as well. Pt denies numbness/tingling to rle and cms intact. Jimbo dsg appears to remain saturated but is not leaking and green light is flashing. call light and h20 in reach. Pt denies having any further needs or concerns.
--- NOTE | 2018-07-07 12:46 | NUR ---
Pt resting in semi fowlers position in bed talking on phone. No facial grimmace noted and pt appears to be in no apperant distress. Pt reports 7/10 pain at this time and states it is not tolerable for her. Per Cierra, it security project manager pt was sleeping just less than a half hour ago and had to shake her shoulder in order to wake her up. Pt's respirations are even and unlabored at 16 currently, pt is A/O x4 and speech is clear. Message left on Dr Barros cell phone and with SECURITY CONSULTANT. Pt denies anxiety and no medications are available to be given at this time. Pt watching TV. ice in place to affected right knee. ADVANCED MANUFACTURING ENGINEER to obtain VS's. Call light and h20 in reach.
--- NOTE | 2018-07-07 13:42 | NUR ---
PT CONFINED TO BED REST-EXPERIENCING SOME BLEEDING. PT SEEMS TO BE DEALING WELL WITH COMPLICATION. EXTENDED A BLESSING, WILL CONTINUE TO FOLLOW
--- NOTE | 2018-07-07 14:19 | NUR ---
PT RESTING SUPINE IN BED, REPORTS PERSISTING 7/10 PAIN AFTER PO TYLENOL WAS ADMINISTERED. PRN PO DILAUDID AND PO GABAPENTIN ADMINISTERED. PT ASSESSMENT COMPLETED. NICHELLE DSG REMAINS SATURATED BUT INTACT WITH GREEN LIGHT FLASHING. CALL LIGHT AND H20 IN REACH.MS REMAINS INTACT TO BILAT LE'S. CRYO CUFF IN PLACE TO RIGHT KNEE AND PT PROVIDED WITH FRESH ICE PACKS. FRESH ICE WATER ALSO PROVIDED. PT DENIES FURHTER NEEDS/CONCERNS AND STATES "I'M GOING TO SEE IF I CAN TAKE A NAP".
--- NOTE | 2018-07-07 14:59 | NUR ---
CALLED TO CLARIFY IF PATIENT WAS TO WORK WITH PHYSICAL THERAPY. ORDER OK TO WORK WITH PHYSICAL THERAPY WITH NO KNEE BENDING.
--- NOTE | 2018-07-07 19:16 | NUR ---
PT RESTING IN BED, PT LAUGHING LOUDLY WHILE VISITING WITH FAMILY. PT APPEARS TO BE IN NO ACUTE DISTRESS. CALL LIGHT AND H20 IN REACH.
--- NOTE | 2018-07-07 20:28 | NUR ---
IN ROOM TO ADMINISTER MEDICATIONS AND ASSESS PT. SHE IS VISITING WITH FAMILY AND SMILING/JOKING WITH THEM. SHE REPORTS PAIN AT "14". 2 MG DILAUDID GIVEN ALONG WITH EVENING MEDICATION. NICHELLE IS SATURATED BUT CONTAINED WITHIN THE WOUNDVAC DRESSING. SHE DENIES FURTHER NEEDS. CALL LIGHT IS CLOSE.
--- NOTE | 2018-07-07 22:15 | NUR ---
TREVON FINN NOTIFIED THIS RN OF PT'S LIGHTHEADEDNESS AND LOW BPS. UPON ENTERING THE ROOM PT HAD COOL WASH CLOTH ACROSS HER EYES AND SAID SHE FELT VERY LIGHT HEADED. BP WAS TAKEN MULTIPLE TIMES AND RANGED FROM 70-90 SYSTOLIC. MANUAL BP WAS 68/32. GOT MORE HELP IN THE ROOM AND RT LEG WAS WARM BOTH FEET WERE COOL TO TOUCH AND PULSES DIFFICULT TO PALPATE. DOPPLER WAS USED AND PULSE WAS FOUND IN RT PEDAL. THE REST OF THE PT'S VS WERE STABLE. NOTIFIED DR MEJIA OF PT'S LOW BPS AND THAT PT STATES PAIN IS VERY BAD AND HER RT KNEE IS VERY SWOLLEN. TORB ORDERS WERE GIVEN FOR 1 LNS BOLUS TO BE GIVEN. WITHIN 15 MINUTE PT STARTED TO RELAX AND FELL ASLEEP. WILL CHECK VS AGAIN SOON.
--- NOTE | 2018-07-07 23:10 | NUR ---
PT REPORTS FEELING MUCH BETTER NOW BUT CONTINUES TO REPORT PAIN VERY HIGH. UPON ENTERING THE ROOM SHE WAS SLEEPING. HER VS HAVE IMPROVED WELL. WILL ADMINISTER OXYCODONE FOR PAIN. PT DENIES FURTHER NEEDS. CALL LIGHT IS CLOSE.
--- NOTE | 2018-07-08 00:27 | NUR ---
PT'S IV BOLUS IS COMPLETE AT THIS TIME. HER IV IS SL AND SHE IS UP 1PA WITH FWW TO THE RESTROOM. SHE WILL USE CALL STRING WHEN SHE IS COMPLETE.
--- NOTE | 2018-07-08 01:32 | NUR ---
PT IS RESTING WITH EYES CLOSED, RESPIRATIONS ARE EVEN AND NONLABORED. CALL LIGHT IS WITHIN REACH.
--- NOTE | 2018-07-08 03:20 | NUR ---
WOKE PT TO ADMINISTER OXYCODONE TO STAY ON TOP OF HER PAIN. AT THIS TIME SHE REPORTS PAIN AT 3/10 WHILE IN BED. PT DENIES FURTHER NEEDS AT THIS TIME. CALL LIGHT IS WITHIN REACH.
--- NOTE | 2018-07-08 04:54 | NUR ---
PT IS RESTING WITH EYES CLOSED, RESPIRATIONS ARE EVEN AND NONLABORED. CALL LIGHT IS WITHIN REACH.
--- NOTE | 2018-07-08 06:16 | NUR ---
PT RATES PAIN HIGH WITH NORCO AND PO DILAUDID FOR PAIN. SHE HAD AN EPISODE LAST NIGHT OF LOW BP WHILE OTHER VS WERE STABLE SHE WAS ANXIOUS AND STATED SHE WAS HAVING INCREASING PAIN IN HER LEG. AFTER REMOVING WRAP FOR A SHORT TIME PT STATED IT STARTED TO FEEL BETTER. DR MEJIA WAS NOTIFIED OF BPS AND INCREASED PAIN AND 1L BOLUS WAS ORDERED AND HER BP IMPROVED. PT HAS CRYOCUFF UNDER HER KNEE PER PT REQUEST WITH ICE BAGS ON TOP. SHE ALSO HAS BHAVANA MONTOYA, SCDS, AND HEEL PROTECTORS IN PLACE. WHEN PT AMBULATES SHE IS TO KEEP RT LEG STRAIGHT AND USE FWW. NICHELLE ON-Q HAS GREEN LIGHT BLINKING AND DRESSING IS SATURATED. HER LEG IS SWOLLEN AND TIGHT. IV IS SL AND SHE IS VOIDING QS.
--- NOTE | 2018-07-08 07:20 | NUR ---
DR MEJIA ARRIVED, GAVE HIM A BRIEF UPDATE ABOUT PT AND HER IMPROVED BP.
[2018-07-08] MEDS ORDERED: HYDROMORPHONE HC2 MG PO (07:42)
[2018-07-08] MEDS ORDERED: CELECOXIB200 MG PO (07:42)
[2018-07-08] MEDS ORDERED: OXYCODONE HCL5 MG PO (07:42)
[2018-07-08] MEDS ORDERED: TYLENOL EXTRA500 MG PO (07:42)
[2018-07-08] MEDS ORDERED: SENNA LAX8.6 MG PO (07:43)
[2018-07-08] MEDS ORDERED: GABAPENTIN600 MG PO (07:43)
[2018-07-08] MEDS ORDERED: HEALTHYLAX17 GM PO (07:43)
--- NOTE | 2018-07-08 08:29 | NUR ---
PATIENT SITTING UP IN BED. RN STUDENT IN ROOM. ICE PACK PROVIDED. CALL LIGHT WITHIN REACH. NO OTHER NEEDS AT THIS TIME
--- NOTE | 2018-07-08 09:35 | NUR ---
PT RESTING IN SEMI FOWLERS POSITION IN BED, WATCHING TV. ASSESSMENT COMPLETED. PT STATES PAIN IS TOLERABLE AT THIS TIME AND STATES "I'M FEELING GOOD. I'M READY FOR THE PHYSICAL THERAPIST TO COME IN SO I CAN WORK WITH HER THEN I'M READY FOR A NAP". DSG SATURATED BUT GREEN LIGHT FLASHING ON NICHELLE PUMP AND DS REMAINS INTACT. ICE APPLIED IN ADDITION TO CRYO CUFF TO RIGHT KNEE. JEWELL WRAP REMAINS IN PLACE ABND BILAT STOCKINGS AND SCD'S ALSO IN PLACE. CMS INTACT TO DISTAL RIGHT LE. CALL LIGHT AND H20 IN REACH.
--- NOTE | 2018-07-08 11:20 | NUR ---
PT RESTING IN SEMI FOWLERS POSITION IN BED. PT ALERT AND ORIENTED X3. STATES PAIN IS TOLERABLE. RIGHT KNEE WARM TO TOUCH, DSG SATURATED BUT INTACT, NICHELLE PUMP SHOWS FLASHING GREEN LIGHT. ON Q REMAINS SET TO 8. FRESH ICE PACKS APPLIED TO RIGHT KNEE AND CRYO CUFF REFILLED WITH FRESH ICE AND WATER. CALL LIGHT AND H20 IN REACH. PT DENIES HAVING ANY FURTHER NEEDS OR CONCERNS.
--- NOTE | 2018-07-08 11:27 | NUR ---
PT SITTING UP IN BED, WAITITNG FOR HER TO COME. SEEMS TO STILL BE IN GOOD SPIRITS, ALTHOUGH SHE WAS HOPING TO BE DC'D TODAY. EXTENDED A BLESSING, WILL FOLLOW NEEDED
--- NOTE | 2018-07-08 14:26 | NUR ---
pt resting supine in bed talking on cell phone. Pt laughing and appears to be in no distress. Assessment completed. right knee appears to remain warm to touch with swelling. Polar ice in place to right knee as well as ice packs. call light and h20 in reach. No needs/concerns voiced. Keri Pandey in to see patient.
--- NOTE | 2018-07-08 16:17 | NUR ---
Pt assisted up to restroom and then walks around nursing stations with only sba, pt tolerated ambulation well and is now resting in bed with hob elevated and o2 back on 1lpnc and pt denies sob o2 sat 92% hr 77. call light and h20 in reach. no further needs/concerns voiced.
--- NOTE | 2018-07-08 17:16 | NUR ---
PT CURRENT DC PLAN IS TO DC TO HOME WITH AND DO PT AT [facility] OP PT OFFICE.
--- NOTE | 2018-07-08 18:35 | NUR ---
Pt resting in bed, reports elevated pain to right knee. prn po oxycodone adm inistered per pt request. Jimbo dsg intact and green light flashing. fresh ice packs x3 placed on top and right lateral side of leg with cryo cuff also applied to right knee. distal cms intact. call light and h2o in reach. No further needs/concerns voiced.
--- NOTE | 2018-07-08 21:00 | NUR ---
EVENING ASSESSMENT DONE. 11/17 RT KNEE PAIN. 2MG PO DILAUDID GIVEN. DRESSING DRY AND INTACT WITH DRIED OLD BLOOD UNDER DRESSING. NICHELLE WORKING FINE. CRYO IN PLACE WITH TEDS, SCD'S, AND HEEL PROTECTORS.
--- NOTE | 2018-07-08 22:17 | NUR ---
VITALS AND I&OS DONE AND CHARTED. FRESH ICE WATER GIVEN. CHECKED CRYO, IT WAS FULL OF ICE. BEDSIDE TABLE AND CALL LIGHT IN REACH.
--- NOTE | 2018-07-08 23:00 | NUR ---
PATIENT RESTING QUIETLY, EYES CLOSED, RESPIRATIONS REGULAR AND EVEN AT 18. CALL LIGHT IN REACH AND HAS GONE HOME.
--- NOTE | 2018-07-08 23:14 | NUR ---
HELPED PT TO THE BATHROOM AND BACK TO BED. BEDSIDE TABLE AND CALL LIGHT WITHIN REACH.
--- NOTE | 2018-07-09 01:05 | NUR ---
PATIENT RESTING QUIETLY. CALLLIGHT IN REACH, EYES CLOSED RESPIRATIONS EVEN AND REGULAR AT 18. NO S/S OF DISTRESS.
--- NOTE | 2018-07-09 03:00 | NUR ---
PATIENT HAS BEEN RESTING COMFORTABLY. HAS BEEN RESTING QUIETLY AND COMFORTABLE. GOING BACK TO SLEEP.
--- NOTE | 2018-07-09 05:20 | NUR ---
PATIENT HAS RESTED WELL MOST OF THE SHIFT AFTER 2MG PO DILAUDED GIVEN AT PM MED TIME. ASSESSMENT OF DRESSING REMAINS UNCHANGED. CRYO STILL IN PLACE WITH BAGS OF ICE. RT KNEE STILL SWOLLEN. ALL DR. MEJIA NORMAL POST OP ORDERS IN PLACE, SCD'S, TEDS, HEEL PROTECTORS. PATIENT RESTING QUIETLY AT THIS TIME. EYES CLOSED RESPIRATIONS REGULAR AND EVEN.
--- NOTE | 2018-07-09 06:14 | NUR ---
PATIENT WOKE WITH 8/10 PAIN IN THE RT. GOT UP TO THE BATHROOM WITH 1PSBA AND FWW, CHANGED HER CLOTHES, AND GOT BACK IN BED. 10MG OXCODONE WITH SCHEDULED TYLENOL GIVEN.
--- NOTE | 2018-07-09 07:14 | NUR ---
0705: Report recieved from Lennox PARADA at the bedside. Call gregorio within reach. Dr Barros to the bedside speaking with the pt and discussing her POC.
--- NOTE | 2018-07-09 07:41 | NUR ---
Pt. awake, sitting up & drinking coffee. Alert & oriented x 3. Pain is at an 8/10, but was given pain meds and is using CRYO pump & ice bags. TEDs & SCDs in place. Call light within reach
--- NOTE | 2018-07-09 08:30 | NUR ---
PT RESTING IN HER BED STATING HER PAIN IS NOW A 5/10 WHICH SHE STATES IS ACCEPTABLE TO HER. THE RIGHT KNEE REMAINS RED, WARM AND SWOLLEN WITH THE DRESSING BEING SATURATED WITH OLD DRY BLOOD. DR MEJIA SAW THE PT THIS AM AND IS AWARE OF THE KNEE APPEARANCE. VALERIE DENIES ANY OTHER PROBLEMS. PT DECLINED HER MIRALAX THIS AM AND STATES SHE HAD A NORMAL BM YESTERDAY. CALL NDIAYE IN REACH. NICHELLE, ON Q, BHAVANA HOSE, SCDS AND CRYO CUFF ALL ON AND RUNNING. ICE BAGS ALSO ON THE INCISION SITE IN ADDITION TO THE CRYO CUFF. ICE PRESENT IN THE CRYO AT THIS TIME.
--- NOTE | 2018-07-09 09:21 | NUR ---
RX in room speaking with the pt.
--- NOTE | 2018-07-09 09:50 | NUR ---
PATIENT SITTING UP IN BED. RN STUDENT, RN AND PHYSICAL THERAPIST IN ROOM. VITAL SIGNS DONE BY RN STUDENT. I&O DONE. PATIENT DID NOT VOID DURING THIS PERIOD. RN NOTIFIED. CALL LIGHT WITHIN REACH. NO OTHER NEEDS AT THIS TIME
--- NOTE | 2018-07-09 10:49 | NUR ---
Dressing remains unchanged as does the knee, which is swollen, slightly red and warm to the touch. The ice in her ice bags and cyro cuff replaced. Scds, kei hose, cyro cuff, heel protectors and vijaya dressing remains on and running correctly. Pt states her pain level is a 7/10 at this time after physical therapy.
--- NOTE | 2018-07-09 11:22 | NUR ---
PT DRESSED, WAITING FOR DC ORDERS. SHE IS EXCITED TO GO AND THANKED ME FOR CARING FOR HER. EXTENDED A BLESSING
--- NOTE | 2018-07-09 12:06 | NUR ---
Pt eating lunch at this time and she states her pain is a 3/10 which she is pleased with. She is awaiting her spouse to arrive so she can be dc'd to home.
--- NOTE | 2018-07-09 13:05 | NUR ---
REPORT RECEIVED FROM KARMA CANALES. PT RESTING IN BED WATCHING TV, STATES PAIN IS TOLERABLE AND SHE IS READY TO GO HOME JUST WATING ON HER TO PICK HER UP. PER KARMA CANALESPORT ENGINEER EDUCATION ALREADY GONE OVER, IV REMOVED AND PT IS READY TO HEAD OUT THE DOOR AFTER VS'S ARE TAKEN AND BELONGINGS GATHERED. CALL LIGHT AND H20 IN REACH, NO NEEDS/CONCERNS VOICED.
--- NOTE | 2018-07-12 08:21 | DS ---
[facility] [address], [place] [address] Signed ADMISSION DATE: 07/05/2018 DISCHARGE DATE: 07/09/2018 ADMISSION DIAGNOSIS: Degenerative joint disease, right knee. DISCHARGE DIAGNOSIS: Degenerative joint disease, right knee. PROCEDURE PERFORMED DURING THIS HOSPITALIZATION: Hardware removal and right total knee replacement. BRIEF HISTORY: Valerie is a 57-year-old female, who had a prior patellar fracture and underwent successful healing after ORIF. Risks and benefits of surgery including removal of hardware and proceeding with total knee were discussed with her and she elected to proceed. DESCRIPTION OF PROCEDURE: Once consent was obtained, she was taken to the operating room. After adequate anesthesia, she underwent the above-named procedure. She tolerated this well, was taken to the recovery room, and subsequently to orthopedic floor. She initially placed on oxycodone for pain control. However that was insufficient in controlling her pain. Dilaudid was added to that and she did well after that. She had ups and downs until her normal medication was resumed and that seem to level out her mental status. She was seen by Physical Therapy, able to ambulate up and down the halls, up and down the stairs by the day of discharge. She did have a little bit extra drainage initially, however, this resolved with rest. She will continue with current dressings, current medications, and follow up Thursday for dressing change. Should she have any problems over the weekend, she will notify me immediately. Lois Barros MD BA/HOMERO /[id number] Electronically Signed By: LOIS BARROS MD 07/12/18 0821 PATIENT NAME: VALERIE MICHELLE DISCHARGE SUMMARY DATE OF : 62 REPORT #: [id number] PHYSICIAN: LOIS BARROS MD PCP: LACY PALOMARES MD REPORT IS CONFIDENTIAL AND NOT TO BE RELEASED WITHOUT AUTHORIZATION [facility] [address] [place], [place] [address] Signed Copies: ~ Electronically Signed By: LOIS BARROS MD 07/12/18 0821 PATIENT NAME: VALERIE MICHELLE DISCHARGE SUMMARY DATE OF : 62 REPORT #: [id number] PHYSICIAN: LOIS BARROS MD PCP: LACY PALOMARES MD REPORT IS CONFIDENTIAL AND NOT TO BE RELEASED WITHOUT AUTHORIZATION
== END 2018-07-09 13:30 | disposition home or self-care (01) | DRG 470 ==
LOC: MS 07-05 06:00 → DSVR 07-05 06:00 → MS 07-05 06:45
PROVIDERS: ADMIT Specialist
PROC: 8E0YXBZ Computer Assisted Procedure of Lower Extremity (ICD-10-PCS; 2018-07-05)
PROC: 3E0T3BZ Introduction of Anesthetic Agent into Peripheral Nerves and Plexi, Percutaneous Approach (ICD-10-PCS; 2018-07-05)
PROC: 3E0T33Z Introduction of Anti-inflammatory into Peripheral Nerves and Plexi, Percutaneous Approach (ICD-10-PCS; 2018-07-05)
PROC: 0SRC0J9 Replacement of Right Knee Joint with Synthetic Substitute, Cemented, Open Approach (ICD-10-PCS; principal; 2018-07-05 07:30)
PROC: 0QPD04Z Removal of Internal Fixation Device from Right Patella, Open Approach (ICD-10-PCS; 2018-07-05 07:30)
DX: M17.11 Unilateral primary osteoarthritis, right knee (principal); G89.18 Other acute postprocedural pain; G43.909 Migraine, unspecified, not intractable, without status migrainosus; Z96.652 Presence of left artificial knee joint; Z88.5 Allergy status to narcotic agent; Z87.891 Personal history of nicotine dependence; Z79.899 Other long term (current) drug therapy
CPT/HCPCS: 01402; 36415; 64447; 64450; 76942; 80048; 85025; 94762; 97110; 97116; 97162; C1713; C1776; J0131; J0690; J1100; J1885; J2250; J2704; J2795; J3010; J7030; J7120

== ENCOUNTER 2019-01-27 03:07 | Emergency (ER) | payer OTHER, MEDICARE ==
[~2019-01-27] VITALS: Ht 162.6 cm; Wt 81.1 kg
[~2019-01-27 03:07] MED LIST changes: +BUPROPION HCL200 MG PO; +CELECOXIB200 MG PO; +HEALTHYLAX17 GM PO; +HYDROMORPHONE HC2 MG PO; +TYLENOL EXTRA500 MG PO; +ZYRTEC10 MG PO
[2019-01-27] MEDS ORDERED: REXULTI2 MG PO (03:24)
--- OUTSIDE RECORDS SUMMARY | 2019-01-27 04:12 | XMS ---
PreManage Notification: VALERIE MICHELLE Security Tube Operator Events No recent Security Events currently on file CRITERIA MET - PDMP CARE PROVIDERS Kory Campbell MD Primary Care Current PHONE: Unknown Rody has no Care Guidelines for this patient. E.DAvni VISIT COUNT (12 MO.) 3 ARACELI Carter TOTAL 3 NOTE: Visits indicate total known visits. ED/UCC VISIT TRACKING (12 MO.) 01/27/2019 03:07 [facility]ELI [facility] TYPE: Emergency COMPLAINT: - HEADACHE 05/09/2018 04:49 [facility] TYPE: Emergency COMPLAINT: - HEADACHE DIAGNOSES: - Other residential (current) drug therapy - Personal history of nicotine dependence - Allergy status to narcotic agent status - Migraine, unspecified, not intractable, without status migrainosus - Headache - Personal history of transient ischemic attack (TIA), and cerebral infarction without residual deficits - Bipolar disorder, unspecified 02/09/2018 16:15 [facility] OR TYPE: Emergency COMPLAINT: - DIFFICULTY BREATHING DIAGNOSES: - Headache - Major depressive disorder, single episode, unspecified - Migraine, unspecified, not intractable, without status migrainosus - Personal history of transient ischemic attack (TIA), and cerebral infarction without residual deficits - Other residential (current) drug therapy - Bipolar disorder, unspecified - Personal history of nicotine dependence INPATIENT VISIT TRACKING (12 MO.) 07/05/2018 06:00 [facility] OR TYPE: Medical Surgical COMPLAINT: - RT TOTAL KNEE REPLACEMENT W/HARDWARE REMOVAL DIAGNOSES: - Presence of left artificial knee joint - Other acute postprocedural pain - Presence of left artificial knee joint - Other residential (current) drug therapy - Allergy status to narcotic agent status - Other acute postprocedural pain - Unilateral primary osteoarthritis, right knee - Personal history of nicotine dependence - Displaced longitudinal fracture of right patella, subsequent encounter for closed fracture with routine healing - Unilateral primary osteoarthritis, right knee - Personal history of nicotine dependence - Migraine, unspecified, not intractable, without status migrainosus - Other intermediate designer (current) drug therapy - Allergy status to narcotic agent status - Migraine, unspecified, not intractable, without status migrainosus 03/29/2018 05:55 [facility] OR TYPE: Surgery COMPLAINT: - TOTAL RT KNEE REPLACEMENT DIAGNOSES: - Displaced longitudinal fracture of right patella, initial encounter for closed fracture - long term care social worker (current) use of non-steroidal anti-inflammatories (NSAID) - Displaced longitudinal fracture of right patella, initial encounter for closed fracture - Other chronic pain - Unspecified fall, initial encounter - Other acute postprocedural pain - Other residential (current) drug therapy - Personal history of transient ischemic attack (TIA), and cerebral infarction without residual deficits - Personal history of nicotine dependence - Personal history of nicotine dependence - Bipolar disorder, unspecified - Anxiety disorder, unspecified - Other acute postprocedural pain - Allergy status to narcotic agent status - Bilateral primary osteoarthritis of knee - skilled nursing (current) use of non-steroidal anti-inflammatories (NSAID) - Allergy status to narcotic agent status - Bipolar disorder, unspecified - Presence of left artificial knee joint - Presence of left artificial knee joint - Personal history of transient ischemic attack (TIA), and cerebral infarction without residual deficits - Other chronic pain - Unilateral primary osteoarthritis, right knee - Other residential (current) drug therapy - Unspecified fall, initial encounter - Anxiety disorder, unspecified [email or web address]
== END 2019-01-27 04:36 | disposition home or self-care (01) ==
LOC: ED 03:07
DX: G43.909 Migraine, unspecified, not intractable, without status migrainosus (principal); F31.9 Bipolar disorder, unspecified; Z87.891 Personal history of nicotine dependence; Z88.5 Allergy status to narcotic agent; Z79.899 Other long term (current) drug therapy
CPT/HCPCS: 96374; 96375; 99283-25; J1200; J1885; J2765; J7030

== ENCOUNTER 2019-02-18 19:10 | Emergency (ER) | payer OTHER, MEDICARE ==
[~2019-02-18] VITALS: Ht 162.6 cm; Wt 82.0 kg
[~2019-02-18 19:10] MED LIST changes: +REXULTI2 MG PO
--- OUTSIDE RECORDS SUMMARY | 2019-02-18 19:12 | XMS ---
PreManage Notification: VALERIE MICHELLE Security Recreational Therapist Events No recent Security Events currently on file CRITERIA MET - [place] - [facility] - 2 Visits in 30 Days CARE PROVIDERS JELANI [facility] 01/27/2019-Current PHONE: [phone] Kory Campbell MD Primary Care Current PHONE: Unknown Rody has no Care Guidelines for this patient. EVivian VISIT COUNT (12 MO.) [address] [place] [address] TOTAL 3 NOTE: Visits indicate total known visits. ED/UCC VISIT TRACKING (12 MO.) 02/18/2019 19:10 ARACELI Mcknight OR TYPE: Emergency COMPLAINT: - HEADACHE 01/27/2019 03:07 ARACELI Mcknight OR TYPE: Emergency COMPLAINT: - HEADACHE DIAGNOSES: - Migraine, unsp, not intractable, without status migrainosus - Allergy status to narcotic agent status - Headache - Bipolar disorder, unspecified - Other intermediate (current) drug therapy - Personal history of nicotine dependence 05/09/2018 04:49 ARACELI [facility]night OR TYPE: Emergency COMPLAINT: - HEADACHE DIAGNOSES: - Other intermediate (current) drug therapy - Personal history of nicotine dependence - Allergy status to narcotic agent status - Migraine, unsp, not intractable, without status migrainosus - Headache - Prsnl hx of TIA (TIA), and cereb infrc w/o resid deficits - Bipolar disorder, unspecified INPATIENT VISIT TRACKING (12 MO.) 07/05/2018 06:00 ARACELI Mcknight OR TYPE: Medical Surgical COMPLAINT: - RT TOTAL KNEE REPLACEMENT W/HARDWARE REMOVAL DIAGNOSES: - Presence of left artificial knee joint - Other acute postprocedural pain - Presence of left artificial knee joint - Other regional intermodal truck driver (current) drug therapy - Allergy status to narcotic agent status - Other acute postprocedural pain - Unilateral primary osteoarthritis, right knee - Personal history of nicotine dependence - Displ longitud fx r patella, subs for clos fx w routn heal - Unilateral primary osteoarthritis, right knee - Personal history of nicotine dependence - Migraine, unsp, not intractable, without status migrainosus - Other intermediate (current) drug therapy - Allergy status to narcotic agent status - Migraine, unsp, not intractable, without status migrainosus 03/29/2018 05:[address] [facility] OR TYPE: Surgery COMPLAINT: - TOTAL RT KNEE REPLACEMENT DIAGNOSES: - Displaced longitudinal fracture of right patella, init - salvage determiner (current) use of non-steroidal non-inflam (NSAID) - Displaced longitudinal fracture of right patella, init - Other chronic pain - Unspecified fall, initial encounter - Other acute postprocedural pain - Other intermediate (current) drug therapy - Prsnl hx of TIA (TIA), and cereb infrc w/o resid deficits - Personal history of nicotine dependence - Personal history of nicotine dependence - Bipolar disorder, unspecified - Anxiety disorder, unspecified - Other acute postprocedural pain - Allergy status to narcotic agent status - Bilateral primary osteoarthritis of knee - salvage determiner (current) use of non-steroidal non-inflam (NSAID) - Allergy status to narcotic agent status - Bipolar disorder, unspecified - Presence of left artificial knee joint - Presence of left artificial knee joint - Prsnl hx of TIA (TIA), and cereb infrc w/o resid deficits - Other chronic pain - Unilateral primary osteoarthritis, right knee - Other regional intermodal truck driver (current) drug therapy - Unspecified fall, initial encounter - Anxiety disorder, unspecified [email or web address]
== END 2019-02-18 20:58 | disposition home or self-care (01) ==
LOC: ED 19:10
DX: G43.909 Migraine, unspecified, not intractable, without status migrainosus (principal); F31.9 Bipolar disorder, unspecified; Z88.5 Allergy status to narcotic agent; Z79.899 Other long term (current) drug therapy
CPT/HCPCS: 96361; 96374; 96375; 99283-25; J1200; J1885; J2765; J7030

== ENCOUNTER 2019-05-11 18:25 | Emergency (ER) | payer OTHER, MEDICARE ==
[~2019-05-11] VITALS: Ht 162.6 cm; Wt 77.5 kg
--- OUTSIDE RECORDS SUMMARY | 2019-05-11 18:28 | XMS ---
PreManage Notification: VALERIE MICHELLE Security Convention Planner Events No recent Security Events currently on file CRITERIA MET - [facility] CARE PROVIDERS BARBARA RYDER Registered Nurse: Psychiatric/Mental 02/21/2019-[facility] PHONE: Unknown JELANI [facility] 01/27/2019-Current PHONE: [phone] Barbara Campbell MD Primary Care Current PHONE: Unknown Rody has no Care Guidelines for this patient. E.D. VISIT COUNT (12 MO.) 3 ARACELI Carter TOTAL 3 NOTE: Visits indicate total known visits. ED/UCC VISIT TRACKING (12 MO.) 05/11/2019 18:26 ARACELI [facility]night OR TYPE: Emergency COMPLAINT: - INJURIES FROM FALL, KNEE AND ELBOW 02/18/2019 19:10 ARACELI [facility] OR TYPE: Emergency COMPLAINT: - HEADACHE DIAGNOSES: - Other halfway (current) drug therapy - Bipolar disorder, unspecified - Headache - Allergy status to narcotic agent status - Migraine, unsp, not intractable, without status migrainosus 01/27/2019 03:07 ARACELI [facility] OR TYPE: Emergency COMPLAINT: - HEADACHE DIAGNOSES: - Migraine, unsp, not intractable, without status migrainosus - Allergy status to narcotic agent status - Headache - Bipolar disorder, unspecified - Other termite treater helper (current) drug therapy - Personal history of nicotine dependence INPATIENT VISIT TRACKING (12 MO.) 07/05/2018 06:00 ARACELI [facility] OR TYPE: Medical Surgical COMPLAINT: - RT TOTAL KNEE REPLACEMENT W/HARDWARE REMOVAL DIAGNOSES: - Presence of left artificial knee joint - Other acute postprocedural pain - Presence of left artificial knee joint - Other halfway (current) drug therapy - Allergy status to narcotic agent status - Other acute postprocedural pain - Unilateral primary osteoarthritis, right knee - Personal history of nicotine dependence - Displ longitud fx r patella, subs for clos fx w routn heal - Unilateral primary osteoarthritis, right knee - Personal history of nicotine dependence - Migraine, unsp, not intractable, without status migrainosus - Other halfway (current) drug therapy - Allergy status to narcotic agent status - Migraine, unsp, not intractable, without status migrainosus [email or web address]
[2019-05-11] MEDS ORDERED: NORCO 5-325 TA1 EACH PO (20:26)
[2019-05-11] MEDS ORDERED: ULTRA-LIGHT RO1 EACH MISC (20:26)
== END 2019-05-11 20:44 | disposition home or self-care (01) ==
LOC: ED 18:25
DX: S82.001A Unspecified fracture of right patella, initial encounter for closed fracture (principal); S51.012A Laceration without foreign body of left elbow, initial encounter; G43.909 Migraine, unspecified, not intractable, without status migrainosus; F31.9 Bipolar disorder, unspecified; Z86.73 Personal history of transient ischemic attack (TIA), and cerebral infarction without residual deficits; F17.200 Nicotine dependence, unspecified, uncomplicated; Z88.5 Allergy status to narcotic agent; Z79.899 Other long term (current) drug therapy; W01.198A Fall on same level from slipping, tripping and stumbling with subsequent striking against other object, initial encounter
CPT/HCPCS: 73560; 90471; 90715; 99283-25

== ENCOUNTER 2019-05-16 08:00 | Day surgery (SDC) | payer OTHER, MEDICARE ==
[~2019-05-16] VITALS: Ht 162.6 cm; Wt 77.1 kg
[~2019-05-16 08:00] MED LIST changes: +NORCO 5-325 TA1 EACH PO; +ULTRA-LIGHT RO1 EACH MISC
--- NOTE | 2019-05-16 10:42 | NUR ---
PATIENT TO OR BY STRETCHER. NEW BAG OF LR HANGING.
[2019-05-16] MEDS ORDERED: HYDROCODON-ACE1 EA11 PO (11:37)
--- NOTE | 2019-05-16 12:09 | NUR ---
05/16/19 1209 Heber,Elizabeth MARTINEZ 1140 PT ARRIVED IN PACU SLEEPY WITH NO C/O'S. NICHELLE DRSG INTACT WITH GREEN LITE FLASHING. PT'S OWN BREG BRACE ON. 1145 ICE TO R KNEE. 1155 TORADOL 30MG GIVEN IVP PER ANESTHESIA ORDER. 1200 C/O FEELING COLD. WARM BLANKETS GIVEN.
--- NOTE | 2019-05-16 12:44 | NUR ---
PATIENT PROVIDED WITH COFFEE AND WATER. AWAKE AND ALERT. CHATTING WITH FAMILY. DRESSING C/D/I WITH NICHELLE IN PLACE. VS STABLE. RATES PAIN 0/10 ON PAIN SCALE. CALL LIGHT WITHIN REACH.
--- NOTE | 2019-05-16 14:01 | NUR ---
PATIENT AWAKE AND ALERT. CONTINUES TO REPORT NUMB AND TINGLING SENSATION IN RIGHT LEG. CAN FEEL PRESSURE UPON PALPATION, DENIES BEING ABLE TO MOVE EXTREMITITY. CMS INTACT. STRONG PEDAL PULSES. ICE APPLIED. PATIENT TOLERATING FLUDIS AND FOOD. NO REPORTS OF NAUSEA. DRESSING C/D/I. CALL LIGHT WITHIN REACH, NO OTHER NEEDS AT THIS TIME.
--- NOTE | 2019-05-16 15:39 | NUR ---
PATIENT UNABLE TO VOID. UP TO BSC WITH STBY ASSIST. NOTED TUAN PAD SATURATED. PATIENT STATES " I WONT HAVE A CATHETER, I WILL BITE YOU AND KICK!" PATIENT APPEARS ANXIOUS WITH DISCUSSION OF URINATING. BLADDER SCAN ESTIMATE >999 ML. PATIENT NOW SITTING ON BSC WITH FRIEND AT BEDSIDE, SINK ON AND PROVIDED ICE WATER TO PUT HANDS IN PER PATIENT REQUEST. VS STABLE. CALL LIGHT WITHIN REACH.
--- NOTE | 2019-05-16 15:53 | NUR ---
PATIENT VOIDED 700 ML OF YELLOW URINE, PVR 881ML. PATIENT BACK UP TO BSC AND REPORTS CONFIDENT WILL BE ABLE TO URINATE IF GIVEN MORE TIME. FRIEND AT BEDSIDE, CALL LIGHT WITHIN REACH.
--- NOTE | 2019-05-16 16:50 | NUR ---
DRESSING INTACT, C/D/I. PIKA DRESSING IN PLACE AND WORKING WELL. ICE IN PLACE. PATIENT ABLE TO EMPTY BLADDER TOTAL OF 1400 ML OUT. PATIENT REPORTS WANTING TO BE DISCHARGED HOME. INTO ROOM WITH DISCHARGE PAPERWORK. PATIENT REPORTS FEELINGS OF BURNING RATES 7/10 ON PAIN SCALE. LET PATIENT KNOW THAT COULD ADMINISTER PAIN MEDICATION BUT WOULD NEED TO KEEP PATIENT FOR AT LEAST 20 MINUTES PER POLICY. PATIENT OPTED TO GO HOME AND TAKE PAIN MEDICATION. PROVIDED DISCHARGE EDUCATION, ANSWERED QUESTIONS AND CONCERNS. PATIENT ABLE TO TEACH BACK. PROVIDED RIDE IN WHEELCHAIR TO VEHICLE, TRANSFERED INTO CAR WELL.
--- NOTE | 2019-05-17 07:56 | OR ---
[facility] [address], [place] [address] Signed DATE OF OPERATION: 05/16/2019 SURGEON: Lois Barros MD PREOPERATIVE DIAGNOSIS: Right patellar fracture, periprosthetic displaced. POSTOPERATIVE DIAGNOSIS: Right patellar fracture, periprosthetic displaced. PROCEDURE PERFORMED: Partial patellectomy, right patella. CUSTOM LEATHER PRODUCTS MAKER: Lashanda Diggs PA-C. ANESTHESIA: General. BLOOD LOSS: Minimal. TOURNIQUET TIME: Zero. BRIEF HISTORY: Valerie is a 58-year-old female, who suffered an acute fall landing on her knees. Radiographs in the emergency department showed a fracture fragment on the superior pole of the patella that was flipped and rotated. Risks and benefits of operative treatment discussed with her. DESCRIPTION OF PROCEDURE: Once consent was obtained, she was taken to the operating room. After adequate anesthesia, she was taken to the operating room bed and no tourniquet was placed. The leg was prepped and draped in a standard sterile fashion. The prior incision was marked out and the superior 3 inches were incised longitudinally, carried through the skin, subcutaneous tissue, and scar. This was taken down to the superior surface of the patella. Then, 2 skin flaps were made medial and laterally. The quad tendon was then split 2 inches proximal to the proximal pole of the patella and elevated off the superior pole. No significant hematoma or bleeding was noted in the patellar tendon. Electronically Signed By: LOIS BARROS MD 05/17/19 0756 PATIENT NAME: VALERIE MICHELLE OPERATIVE REPORT DATE OF : 62 REPORT #: [id number] PHYSICIAN: LOIS BARROS MD PCP: LACY PALOMARES MD REPORT IS CONFIDENTIAL AND NOT TO BE RELEASED WITHOUT AUTHORIZATION [facility] [address] [place], [place] [address] Signed Arthrotomy was performed and there was no blood in the knee joint itself. There was just a small amount of fluid. Using the image intensifier, we identified the fragment, which appeared to be well healed and was not unstable at all. The fragment was debrided using a rongeur superiorly and the determination was made that this was likely an old fracture from her previous fall that she had not reported to us and no x-rays have been obtained. We then irrigated the wound copiously with dilute iodine followed by normal saline and closed the arthrotomy using #1 Vicryl, the subcutaneous tissue with 2-0 Stratafix, and the skin with a Zip line. The wound was then dressed with a NICHELLE wound VAC dressing and Jose wrap. She was placed back into her hinged knee brace and taken to the recovery room in satisfactory condition. All sponge, needle, and instrument counts were correct. Lois Barros MD BA/LIONL /[id number] Copies: ~ Electronically Signed By: LOIS BARROS MD 05/17/19 0756 PATIENT NAME: VALERIE MICHELLE OPERATIVE REPORT DATE OF : 62 REPORT #: [id number] PHYSICIAN: LOIS BARROS MD PCP: LACY PALOMARES MD REPORT IS CONFIDENTIAL AND NOT TO BE RELEASED WITHOUT AUTHORIZATION
== END 2019-05-16 16:30 | disposition home or self-care (01) ==
LOC: OPS 08:00 → DS 08:00 → OPS 10:15
PROVIDERS: Specialist
PROC: 0QBD0ZZ Excision of Right Patella, Open Approach (ICD-10-PCS; principal; 2019-05-16 10:15)
DX: S82.001A Unspecified fracture of right patella, initial encounter for closed fracture (principal); M97.11XA Periprosthetic fracture around internal prosthetic right knee joint, initial encounter; F17.210 Nicotine dependence, cigarettes, uncomplicated; F41.9 Anxiety disorder, unspecified; F32.9 Major depressive disorder, single episode, unspecified; K21.9 Gastro-esophageal reflux disease without esophagitis; G45.9 Transient cerebral ischemic attack, unspecified; Z96.651 Presence of right artificial knee joint; Z79.899 Other long term (current) drug therapy; W18.49XA Other slipping, tripping and stumbling without falling, initial encounter
CPT/HCPCS: 73560; J0690; J1100; J1885; J2250; J2704; J2795; J7121

== ENCOUNTER 2019-05-17 10:17 | Observation (INO) | payer OTHER, MEDICARE ==
[~2019-05-17] VITALS: Ht 162.6 cm; Wt 77.1 kg
[~2019-05-17 10:17] MED LIST changes: +HYDROCODON-ACE1 EA11 PO
--- OUTSIDE RECORDS SUMMARY | 2019-05-17 10:20 | XMS ---
PreManage Notification: VALERIE MICHELLE Security Inspector Boiler Events No recent Security Events currently on file CRITERIA MET - [facility] - [facility] - 2 Visits in 30 Days CARE PROVIDERS BARBARA RYDER Registered Nurse: Psychiatric/Mental 02/21/2019-[facility] PHONE: Unknown JELANI [facility] 01/27/2019-Current PHONE: [phone] Barbara Campbell MD Primary Care Current PHONE: Unknown Rody has no Care Guidelines for this patient. E.D. VISIT COUNT (12 MO.) 4 ARACELI Carter TOTAL 4 NOTE: Visits indicate total known visits. ED/UCC VISIT TRACKING (12 MO.) 05/17/2019 10:18 ARACELI [facility] OR TYPE: Emergency COMPLAINT: - R ANKLE FRACTURE 05/11/2019 18:26 ARACELI [facility]night OR TYPE: Emergency COMPLAINT: - INJURIES FROM FALL, KNEE AND ELBOW DIAGNOSES: - Nicotine dependence, unspecified, uncomplicated - Bipolar disorder, unspecified - Other rn long term care (current) drug therapy - Pain in right elbow - Migraine, unsp, not intractable, without status migrainosus - Fall same lev from slip/trip w strike agnst oth object, init - Prsnl hx of TIA (TIA), and cereb infrc w/o resid deficits - Allergy status to narcotic agent status - Unsp fracture of right patella, init for clos fx - Laceration without foreign body of left elbow, init encntr 02/18/2019 19:10 ARACELI Mcknight OR TYPE: Emergency COMPLAINT: - HEADACHE DIAGNOSES: - Other rn long term care (current) drug therapy - Bipolar disorder, unspecified - Headache - Allergy status to narcotic agent status - Migraine, unsp, not intractable, without status migrainosus 01/27/2019 03:07 ARACELI Mcknight OR TYPE: Emergency COMPLAINT: - HEADACHE DIAGNOSES: - Migraine, unsp, not intractable, without status migrainosus - Allergy status to narcotic agent status - Headache - Bipolar disorder, unspecified - Other alf (current) drug therapy - Personal history of nicotine dependence INPATIENT VISIT TRACKING (12 MO.) 07/05/2018 06:00 ARACELI Mcknight OR TYPE: Medical Surgical COMPLAINT: - RT TOTAL KNEE REPLACEMENT W/HARDWARE REMOVAL DIAGNOSES: - Presence of left artificial knee joint - Other acute postprocedural pain - Presence of left artificial knee joint - Other alf (current) drug therapy - Allergy status to narcotic agent status - Other acute postprocedural pain - Unilateral primary osteoarthritis, right knee - Personal history of nicotine dependence - Displ longitud fx r patella, subs for clos fx w routn heal - Unilateral primary osteoarthritis, right knee - Personal history of nicotine dependence - Migraine, unsp, not intractable, without status migrainosus - Other alf (current) drug therapy - Allergy status to narcotic agent status - Migraine, unsp, not intractable, without status migrainosus [id number]
--- NOTE | 2019-05-17 13:08 | NUR ---
REPORT RECEIVED FROM MILLA PARADA FROM ED AT 1305. ALL QUESTIONS ANSWERED.
--- NOTE | 2019-05-17 14:24 | NUR ---
MED REC COMPLETE
--- NOTE | 2019-05-17 16:59 | NUR ---
In and spoke with Amina. She had surgery day before yesterday and states she fell when she walked in the door. She then fell again this am and fx her ankle. Plans on going home with her spouse as she states she has had bilat knee replacement and knee cap fx in the past. Has WC and walker at home. Suggested she buy a transfer bench shower chair and cover for leg dressing as she states concerns for showering. States she has already taken 6 weeks off for knee surgery and feels she can recoup at home with assitance from spouse. Does not need to return to the [employer] where she works until she is healed. Friends will also assist her.
--- NOTE | 2019-05-17 17:05 | NUR ---
DENIES NEED TO VOID. WILL ATTEMPT NOW.
--- NOTE | 2019-05-17 17:45 | NUR ---
ADMISSION FROM ED TODAY. RIGHT PATELLA REPAIR 05/16/19. RIGHT ANKLE FRACTURE THIS MORNING. BRACE ON RIGHT KNEE AND SPLINT ON RIGHT ANKLE. TRANSFERS ON LEFT LEG TO BSC. REGULAR DIET-- NPO AT MIDNIGHT. RAC IV S/L. IVF TO START AT 2300. CRYOCUFF ON RIGHT ANKLE. HOSPITALIST CONSULT. RIGHT ANKLE ELEVATED.
--- NOTE | 2019-05-17 18:04 | NUR ---
PATIENT IN BED WATCHING TV, VISITOR IN ROOM. PATIENT WATING FOR DINNER DORI. CALL LIGHT IN REACH. NO FURTHER NEEDS AT THIS TIME.
--- NOTE | 2019-05-17 19:31 | NUR ---
RECEIVED REPORT FROM DAY SHIFT RN. PATIENT IS RESTING IN BED WITH RLE ELEVATED ON PILLOW. PLACED CALL TO CIRCULAR SAW FILER TO START IV. PATIENTS IV AT THIS TIME IS NO LONGER PATENT. NO FURTHER NEEDS NOTED. CALL LIGHT IN REACH.
--- NOTE | 2019-05-17 20:30 | NUR ---
PATIENT ASSESMENT COMPLETED. JESSICA RN IN TO START IV. PATIENTS IV STARTED AND IV FLUIDS INFUSING PER ORDER. PATIENT RATES PAIN AT A 9/10 IN HER RIGHT ANKLE. PATIENT GIVEN PRN PAIN MEDICATION PER ORDER. PATIENTS SCHEDULED MEDICATION GIVEN PER ORDER. PATIENTS RIGHT LOW EXT ELEVATED ON PILLOW AND BRACE IS ON. PATIENTS CRYO REFILLED AND APPLIED TO RIGHT ANKLE. PATIENT IS ON RA. PATIENT HAS NICHELLE IN PLACE, UNABLE TO ASSES DRESSING JEWELL WRAP IS OVER DRESSING UNDER RIGHT KNEE BRACE. RT COMPLETED EKG. PATIENT IS OFF THE FLOOR FOR CHEST X-RAYS PER ORDER. PATIENT DENIES ANY QUESTIONS.
--- NOTE | 2019-05-17 21:00 | NUR ---
PT BACK TO FLOOR FROM XRAY. WHILE 2 STAFF IN ROOM, PT SELF TRANSFERED NWB RIGHT LEG BACK TO BED. INDEPENDENTLY GOT SELF INTO BED, AND ADJUSTED. FOOT CRYO IN PLACE, LEG ELEVATED ON PILLOW. PT STATED NO FURTHER NEEDS AT THIS TIME.
--- NOTE | 2019-05-17 22:09 | NUR ---
PATIENT IS RESTING IN BED WITH EYES CLOSED, RR 16. CALL LIGHT IN REACH.
--- NOTE | 2019-05-17 22:31 | NUR ---
PATIENT ASSISTED TO THE [facility] A PIVOT TRANSFER. PATIENT WAS ABLE TO VOID. PATIENT IS NOW BACK IN BED RESTING. RLE ELEVATED ON PILLOWS X2. CRYO APPLIED TO RIGHT ANKLE. PATIENT RATES PAIN AT A 7/10. PATIENT GIVEN PRN PAIN MEDICATION PER ORDER. PATIENTS ICE WATER REFILLED AND SNACK PROVIDED. PATIENT DENIES ANY FURTHER NEEDS. CALL LIGT IN REACH.
--- NOTE | 2019-05-18 01:06 | NUR ---
PATIENT HAS BBEN NPO SINCE MIDNIGHT. PATIENT RATES PAIN AT A 7/10 IN RIGHT ANKLE AND 4/10 IN RIGHT KNEE. PATIENT GIVEN PRN PAIN MEDICATION PER ORDER. PATIENTS CRYO REFILLED AND PLACED ON RIGHT ANKLE. X2 ICE PACKS PLACED ON PATIENTS RIGHT KNEE. PATIENTS RLE REMAINS ELEVATED ON PILLOWS. PATIENT DENIES ANY NEEDS. CALL LIGHT IN REACH.
--- NOTE | 2019-05-18 03:06 | NUR ---
PATIENT IS RESTING IN BED WITH EYSE CLOSED, RR 18. CALL LIGHT IN REACH. RLE ELEVATED ON PILLOWS. CRYO IN USE.
--- NOTE | 2019-05-18 04:22 | NUR ---
PATIENT RESTED WELL THROUGHOUT THE SHIFT. PATIENT HAS BEEN NPO SINCE MIDNIGHT. PATIENT IS A 1PA/PIVOT TRANSFER. PATIENT IS NON-WEIGHT BEARING IN HER RLE. PATIENT HAS KNEE BRACE ON RIGHT KNEE. CRYO APPLIED TO RIGHT ANKLE AND ICE PACKS ON RIGHT KNEE. NICHELLE DRESSING PRESNET UNDER KNEE BRACE AND GREEN LIGHT FLASHING. PATIENTS RLE IS ELEVATED ON PILLOWS. PATIENT HAS RECEIVED PRN MEDICATION MULTIPLE TIMES FOR PAIN IN RIGHT KNEE/ANKLE. PATIENT HAS IV INFUSING. PATIENT IS AAOX4 AND [facility]
--- NOTE | 2019-05-18 05:08 | NUR ---
PATIENT ASSISTED TO [facility] A PIVOT TRANSFER. PATIENT WAS ABLE TO VOID. PATIENT IS BACK IN BED RESTING. PATIENTS SURGERY WIPE DOWN COMPLETED. PATIENT IN HOSPITAL GOWN NOW. UNDERWEAR REMOVED. JEWELRY REMOVED. SURGERY PREP STARTED. PATIENT RATES PAIN AT A 6/10 IN HER RIGHT ANKLE. PATIENT GIVEN PRN PAIN MEDICATION PER ORDER. IV INFUSING. PATIENT DENIES ANY FURTHER NEEDS. MOUTH SWABS PROVIDED. CALL LIGHT IN REACH.
--- NOTE | 2019-05-18 07:44 | EKG ---
[facility] [address] [facility] [place], [place] [address] Signed Sinus bradycardia Otherwise normal ECG Confirmed by MELANI LITTLE MD ([id number]) on 05/18/2019 7:44:06 AM Electronically Signed By: MELANI LITTLE MD 05/18/19 0744 PATIENT NAME: SOUMYA MICHELLEMAO CURTIS Electrocardiogram DATE OF : 62 PHYSICIAN: MELANI LITTLE MD REPORT #: [id number] REPORT IS CONFIDENTIAL AND NOT TO BE RELEASED WITHOUT AUTHORIZATION
--- NOTE | 2019-05-18 07:50 | NUR ---
BEDSIDE REPORT RECEIVED FROM IRIS PARADA. PATIENT SLEEPING AT THIS TIME. WHITE BOARD UPDATED. ANCEF AND LR WITH STRAIGHT TUBING ATTACHED TO PATIENT. PAPERWORK FOR HARD CHART PRINTED AND READY FOR OR CREW. PATIENT AT BEDSIDE.
--- NOTE | 2019-05-18 11:05 | NUR ---
05/18/19 1105 Elizabeth Buck 1046 PT ARRIVED IN PACU NON RESPONSIVE WITH OPA IN PLACE. 1052 PT REACTIVE AND OPA REMOVED. 1100 PT AWAKENS AND REPOSITIONED R FOOT ON PILLOW. ICE PLACED BILAT. 1105 TAKING SIPS OF WATER. NO C/O'S NAUSEA OR PAIN.
--- NOTE | 2019-05-18 11:34 | NUR ---
pt back to room at 1130. report received at bedside and all questions answered. patient tolerated water and crackers. right ankle boot in place. jesse wrap over incisions.
--- NOTE | 2019-05-18 13:15 | NUR ---
PT SBA TO BSC WITH STAND PIVOT, NWB ON RIGHT LEG. PT VOIDED. ASSISTED BACK TO BED. PT DENIES OTHER NEEDS AT THIS TIME.
--- NOTE | 2019-05-18 13:35 | NUR ---
KARMA MCGRATH INFORMED ME THAT PT HAS BEEN TAKEN TO OR. WILL FOLLOW NEEDED
--- NOTE | 2019-05-18 13:45 | NUR ---
TALKED WITH PT, SHE HAD A FRIEND IN THE ROOM AND GAVE PERMISSION FOR ME TO PROCEED WITH HER FRIEND THERE. SHE TOLD ME SHE KNEW SHE WAS NO WEIGHT BEARING AND IT HAPPENED ANYWAY SHE SAID. PT STATES SHE UNDERSTANDS THE PROCEDURE SHE HAD YESTERDAY AND THE ONE SHE HAD TODAY. INFORMATION ON BOTH OF THESE WAS GIVEN TO HER. WE TALKED ABOUT PAIN MEDICINES AND HOW OFTEN THEY CAN BE TAKEN. PT STATES UNDERSTANDING OF THIS. DENIES QUESTIONS AT THIS TIME. I WILL RETURN TO SEE HER TOMORROW.
--- NOTE | 2019-05-18 14:10 | NUR ---
FAMILY MEMBER AT BEDSIDE. OXYCODONE GIVEN AT 1330. REPORTS SHE IS COMFORTABLE. VSS. TOLERATING REGULAR DIET. DROWSY AT THIS TIME. WILL ALLOW REST NOW. RIGHT LEG ELEVATED ON PILLOWS WITH CRYOCUFF AND ICE PACKS IN PLACE.
--- NOTE | 2019-05-18 17:45 | NUR ---
PATIENT SITTING UP IN BED. VISITOR IN ROOM. VITAL SIGNS AND I&O DONE. CALL LIGHT WITHIN REACH. NO OTHER NEEDS AT THIS TIME
--- NOTE | 2019-05-18 18:23 | NUR ---
SURGERY ON RIGHT ANKLE TODAY. BRACE ON ANKLE. NWB. SBA XFER TO COMMODE. URINATING WELL. OXYCODONE Q4P-- WANTS TO STAY CLOSE TO SCHEDULE TO PREVENT SPIKE IN PAIN. CRYOCUFF/ICE TO RIGHT ANKLE/KNEE.
--- NOTE | 2019-05-18 19:50 | NUR ---
PATIENT VISITING WITH , NOO NEEDS AT THIS TIME. CALL LIGHT IN REACH.
--- NOTE | 2019-05-18 21:16 | NUR ---
ROUNDED CHARGE. PATIENT IS UP TO BSC WITH MARIANA LESTER. PATIENT DENIES ANY COMMENTS, QUESTIONS OR CONCERNS. NO NEEDS NOTED. MARIANA LESTER REMAINS ON THE ROOM. CALL LIGHT IN REACH.
--- NOTE | 2019-05-18 21:27 | NUR ---
PATIENT UP TO THE BATHROM WITH 1PA AND VOIDED 900MLS. PAIN STILL 5/10 AND SHE NEEDS NO MEDS AT THIS TIME. CALL LIGHT IN REACH, ICE MACHINE FILLED, ICE WATER FILLED. CALL LIGHT IN REACH.
--- NOTE | 2019-05-18 21:59 | NUR ---
PATIENT GIVEN 10MG PO OXYCODONE, FOR 7/10 KNEE PAIN. CALL LIGHT IN REACH.
--- NOTE | 2019-05-18 22:58 | NUR ---
PATIENT USED THE CALL LIGHT. 1 SBA TO THE BEDSIDE COMMODE. PATIENT IS BACK IN BED. COFFEE PROVIDED PER PATIENT'S REQUEST.
--- NOTE | 2019-05-19 00:18 | NUR ---
PATIENT RESTING QUIETLY, EYES CLOSED, RESTING QUIETLY, RESPIRATIONS REGULAR AND EVEN. CALL LIGHT IN REACH.
--- NOTE | 2019-05-19 02:00 | NUR ---
PATIENT MEDICATED WITH 10 MG OF PO OXYCODONE FOR 8/10 PAIN RIGHT ANKLE. PATIENT ASSESSED AND THEN UP TO THE BEDSIDE COMMODE AND BACK TO BED WITH 1 PERSON ASSIST. CALL LIGHT IN REACH AND WATER REFILLED.
--- NOTE | 2019-05-19 03:55 | NUR ---
PATIENT RESTING QUIETLY, EYES CLOSED, RESPIRATIONS REGULAR AND EVEN AT 16. CALL LIGHT AND WATER IN REACH.
--- NOTE | 2019-05-19 06:00 | NUR ---
PATIENT SAYS,"I HAD A PRETTY GOOD NIGHT FAR MY PAIN BEING CONTROLLED IT JUST GOT A LITTLE TOO HIGH ONE TIME." NICHELLE DRESSING IN PLACE AND WORKING, GREEN LIGHT FLASHING. PATIENT CAN FEEL AND WIGGLE HER RIGHT TOES, CAP REFILL LWESS THAN 2 SECONDS. ANKLE BRACE WITH ICE REMAINS IN PLACE, AND CRYO CUFF REMAINS IN PLACE ON THE RT KNEE. SCD ON LEFT LEG. PATIENT HAS HAD GOOD URINE OUTPUT WITH 1PA TO PIVOT ON LEFT LEG TO BEDSIDE COMMODE. VS HAVE BEEN STABLE AND PATIENT HAS BEEN IN GOOD SPIRITS. PATIENT WOULD LIKE TO GET SOMETHING FOR BREAKTHROUGH PAIN JUST IN CASE. CALL LIGHT AND WATER ARE IN REACH. PATIENT USING 10MG OXYCODONE EVERY 4HRS.
--- NOTE | 2019-05-19 07:51 | OR ---
[facility] [address], [place] [address] Signed DATE OF OPERATION: 05/18/2019 SURGEON: Lois Barros MD PREOPERATIVE DIAGNOSIS: Right bimalleolar ankle fracture dislocation. POSTOPERATIVE DIAGNOSIS: Right bimalleolar ankle fracture dislocation. PROCEDURE PERFORMED: Open reduction and internal fixation of right ankle bimalleolar with syndesmosis fixation. STAFF COMMAND AND CONTROL OFFICER: Lashanda Diggs PA-C. Lashanda was present and critical for all portions of procedure. BLOOD LOSS: 100 mL. IMPLANTS: A 3 x 130 FibuLock with two distal locking screws, 3.5 hook plate medially with two screws, and an Arthrex syndesmosis TightRope. BRIEF HISTORY: Valerie is a 58-year-old female who had knee surgery on Thursday, went home and suffered a ground level fall on Thursday morning, resulting in a fracture dislocation of her ankle. She presented to the emergency department, was reduced and admitted to my service. Risks and benefits of operative treatment were discussed with her and she elected to proceed. DESCRIPTION OF PROCEDURE: Once consent was obtained, she was taken to the operating room. After adequate anesthesia, she was placed on the operating room table. All downside pressure points were well padded. The right leg was then prepped and draped in standard sterile fashion. The ankle was then reduced and a percutaneous pin was placed in the medial malleolus to hold things to the medial side. A good anatomic reduction was actually obtained. The fibula was then reduced and percutaneously clamped. Once this was obtained, a biplanar fluoroscopy showed good reduction. A 1 cm incision was made distal Electronically Signed By: LOIS BARRSO MD 05/19/19 0751 PATIENT NAME: VALERIE MICHELLE OPERATIVE REPORT DATE OF : 62 REPORT #: [id number] PHYSICIAN: LOIS BARROS MD PCP: LACY PALOMARES MD REPORT IS CONFIDENTIAL AND NOT TO BE RELEASED WITHOUT AUTHORIZATION [facility] [address], [place] [address] Signed to the fibula, carried through the skin and subcutaneous tissue directly down on the tip of the fibula. The guide marii for the 1st drill was then introduced from the tip of the fibula proximally into the body of the fibula. This was overdrilled using the large drill. The longer guide marii was then advanced up the fibula to the top and the 3.1 reamer was used to ream the fibular canal. Once this was accomplished, a 3 x 130 marii was irrigated, placed on its insertion handle, and advanced from tip of the fibula after removal of the guide marii. It was advanced until it was well-seated. The two distal locking screws, one lateral, and one anterolateral were then placed through percutaneous incisions. The syndesmosis was then checked and found to be unstable. We then reduced it and held with a clamp, and through the marii, we placed the syndesmosis TightRope using the standard manufacture's guidelines. Once this was done, the clamp was removed. Attention was then turned to the medial side. A longitudinal incision was carried through skin and subcutaneous tissue with care taken to protect the cephalic vein. The periosteum was incised longitudinally. The fracture was evaluated and found to be well reduced, and was left in position. The hook plate was then placed over the pin. We had placed initially and was advanced up to the tip of the malleolus, and tapped into position. One screw was then placed proximally to hold in position. The pin was then removed and a 4-0 screw was then placed from the tip of the malleolus proximally engaging the body of the tibia. The proximal screw was then tightened. The final radiograph showed the fracture to be anatomically reduced. All screw and hardware were appropriately placed. Both wounds were copiously irrigated with antibiotic solution, closed with 3-0 Monocryl for the subcutaneous tissue, and donita for the skin. All wounds were dressed with Allevyn dressings and an Jose wrap. She was placed into a fracture boot, taken to recovery room in satisfactory condition. All sponge, needle, and instrument counts were correct. Lois Barros MD BA/MODL /[id number] Copies: ~ Electronically Signed By: LOIS BARROS MD 05/19/19 0751 PATIENT NAME: VALERIE MICHELLE OPERATIVE REPORT DATE OF : 62 REPORT #: [id number] PHYSICIAN: LOIS BARROS MD PCP: LACY PALOMARES MD REPORT IS CONFIDENTIAL AND NOT TO BE RELEASED WITHOUT AUTHORIZATION
--- NOTE | 2019-05-19 08:00 | NUR ---
ROUNDED WITH DR MEJIA. PLAN OF CARE DISCUSSED. CRYO CUFF IN PLACE, SCD'S TO LLE. CALL LIGHT IN REACH. DENIES NEEDS.
[2019-05-19] MEDS ORDERED: CELECOXIB200 MG PO (08:04)
[2019-05-19] MEDS ORDERED: OXYCODONE HCL5 MG PO (08:05)
--- NOTE | 2019-05-19 10:29 | NUR ---
PT WORKING WITH PHYSICAL THERAPY AND REQUESTING PAIN MEDICAITON FOR 5/10 PAIN IN LEFT ANKLE. 10 OXYCODONE ADMINISTERED.
--- NOTE | 2019-05-19 11:30 | NUR ---
DR MEJIA CALLED TO BE UPDATED ON PHYSICAL THERAPY. NO ANSWER, VOICEMAIL LEFT.
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
--- NOTE | 2019-05-19 15:00 | NUR ---
Spoke with Amina and friend. Planning dc today. Awaiting commode to be delivered by spouse. Denies need for equipment or help. Friend plans on staying and helping her with IADLS.
--- NOTE | 2019-05-19 15:24 | NUR ---
PT REPORTING 5/10 PAIN. PRN PAIN SAI GIVEN. CRYOCUFF IN PLACE. CALL LIGHT IN REACH. DENIES FURTHER NEEDS.
--- NOTE | 2019-05-19 16:17 | NUR ---
CHECKED ON PT SHE DENIES QUESTIONS AT THIS TIME. IS PLANNING ON GOING HOME TODAY.
--- NOTE | 2019-05-23 11:09 | NUR ---
CALLED PT FOR HER FOLLOW UP CALL. SHE STATED SHE IS DOING GREAT AT HOME. STATES SHE GOT HER RXS FILLED AND KNOWS WHY SHE IS TAKING THEM AND WHAT THE SIDE EFFECTS ARE. STATES DR MEJIA OFFICE CALLED AND SHE HAS AN APPT FOR 05/24/2019 AT 10 AM AND ANOTHER ONE FOR Thursday05/26/19. STATES HER CARE HERE WAS GREAT. CUDOS TO [facility]. SHE THINKS SHE IS THE BEST AID SHE HAS EVERY HAD.
== END 2019-05-19 17:50 | disposition home or self-care (01) ==
LOC: ED 10:17 → MS 10:19 → ED 12:45 → MS 12:45
PROVIDERS: ADMIT Specialist
PROC: 0QSG04Z Reposition Right Tibia with Internal Fixation Device, Open Approach (ICD-10-PCS; principal; 2019-05-18 09:30)
DX: S82.841A Displaced bimalleolar fracture of right lower leg, initial encounter for closed fracture (principal); F17.210 Nicotine dependence, cigarettes, uncomplicated; G43.909 Migraine, unspecified, not intractable, without status migrainosus; E78.00 Pure hypercholesterolemia, unspecified; I10 Essential (primary) hypertension; M19.90 Unspecified osteoarthritis, unspecified site; F31.9 Bipolar disorder, unspecified; W01.0XXA Fall on same level from slipping, tripping and stumbling without subsequent striking against object, initial encounter; Y92.009 Unspecified place in unspecified non-institutional (private) residence as the place of occurrence of the external cause; Z86.73 Personal history of transient ischemic attack (TIA), and cerebral infarction without residual deficits; Z88.5 Allergy status to narcotic agent; Z79.899 Other long term (current) drug therapy; Z79.891 Long term (current) use of opiate analgesic
CPT/HCPCS: 01480; 27840; 36415; 71046; 73600; 73610; 80053; 85025; 93005; 93010; 96375; 96376; 97110; 97162; 99285-25; C1713; G0378; J0131; J0690; J0780; J1100; J1170; J1200; J1885; J2405; J2704; J3010; J3480; J7121; L4386

== ENCOUNTER 2020-06-30 18:41 | Emergency (ER) | payer OTHER, MEDICARE ==
[~2020-06-30] VITALS: Ht 162.6 cm; Wt 82.0 kg
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
== END 2020-06-30 20:28 | disposition home or self-care (01) ==
LOC: ED 18:41
DX: S63.601A Unspecified sprain of right thumb, initial encounter (principal); T14.8XXA Other injury of unspecified body region, initial encounter; Z23 Encounter for immunization; F17.200 Nicotine dependence, unspecified, uncomplicated; Z88.5 Allergy status to narcotic agent; Z79.899 Other long term (current) drug therapy; V49.9XXA Car occupant (driver) (passenger) injured in unspecified traffic accident, initial encounter
CPT/HCPCS: 73130; 73560; 90471; 90715; 99284-25

== ENCOUNTER 2021-03-16 18:20 | Emergency (ER) | payer OTHER, MEDICARE ==
[~2021-03-16] VITALS: Ht 162.6 cm; Wt 83.5 kg
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
[2021-03-16] MEDS ORDERED: RIZATRIPTAN10 M1 PO (20:27)
== END 2021-03-16 20:38 | disposition home or self-care (01) ==
LOC: ED 18:20
DX: G43.909 Migraine, unspecified, not intractable, without status migrainosus (principal); F17.200 Nicotine dependence, unspecified, uncomplicated; Z86.73 Personal history of transient ischemic attack (TIA), and cerebral infarction without residual deficits; Z88.5 Allergy status to narcotic agent; Z79.899 Other long term (current) drug therapy
CPT/HCPCS: 96374; 96375; 99283-25; J0780; J1100; J1200; J1885; J7030

== ENCOUNTER 2021-06-26 04:20 | Emergency (ER) | payer OTHER, MEDICARE ==
[~2021-06-26] VITALS: Ht 162.6 cm; Wt 83.9 kg
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
[2021-06-26] MEDS ORDERED: MACROBID 100 M100 MG PO (06:25)
== END 2021-06-26 06:50 | disposition home or self-care (01) ==
LOC: ED 04:20
DX: N39.0 Urinary tract infection, site not specified (principal); R55 Syncope and collapse; G43.909 Migraine, unspecified, not intractable, without status migrainosus; Z86.73 Personal history of transient ischemic attack (TIA), and cerebral infarction without residual deficits; F17.200 Nicotine dependence, unspecified, uncomplicated; Z88.5 Allergy status to narcotic agent; Z79.899 Other long term (current) drug therapy
CPT/HCPCS: 36415; 80048; 81001; 85025; 87088; 99284-25; J7030

== ENCOUNTER 2021-08-12 04:40 | Emergency (ER) | payer OTHER, MEDICARE ==
[~2021-08-12] VITALS: Ht 162.6 cm; Wt 83.9 kg
[~2021-08-12 04:40] MED LIST changes: +MACROBID 100 M100 MG PO
--- OUTSIDE RECORDS SUMMARY | 2021-08-12 04:42 | XMS ---
PreManage Notification: VALERIE MICHELLE Security Post Tensioning Ironworker Events No recent Security Events currently on file CRITERIA MET - [place] CARE PROVIDERS BARBARA RYDER Nurse Practitioner: Psychiatric/Mental 02/21/2019-Surface [employer] PHONE: [phone] JELANI Lynn [facility] 03/18/2021-Current PHONE: Unknown Rody has no Care Guidelines for this patient. EVivian VISIT COUNT (12 MO.) Roshni Carter TOTAL 3 NOTE: Visits indicate total known visits. ED/UCC VISIT TRACKING (12 MO.) 08/12/2021 04:[address] [facility] [place] TYPE: Emergency COMPLAINT: - HEADACHE, LIGHTED HEADED 06/26/2021 04:20 [facility] [place] TYPE: Emergency COMPLAINT: - WEAKNESS DIAGNOSES: - Nicotine dependence, unspecified, uncomplicated - Syncope and collapse - Other terminal operations supervisor (current) drug therapy - Migraine, unspecified, not intractable, without status migrainosus - Urinary tract infection, site not specified - Allergy status to narcotic agent - Personal history of transient ischemic attack (TIA), and cerebral infarction without residual deficits 03/16/2021 18:[address] [facility] [place] TYPE: Emergency COMPLAINT: - MIGRAINE HEADACHE DIAGNOSES: - Allergy status to narcotic agent - Other terminal operations supervisor (current) drug therapy - Personal history of transient ischemic attack (TIA), and cerebral infarction without residual deficits - Nicotine dependence, unspecified, uncomplicated - Migraine, unspecified, not intractable, without status migrainosus INPATIENT VISIT TRACKING (12 MO.) No inpatient visits to display in this time frame [id number]
[2021-08-12] MEDS ORDERED: IMITREX25 MG PO (06:41)
== END 2021-08-12 06:57 | disposition home or self-care (01) ==
LOC: ED 04:40
DX: G43.909 Migraine, unspecified, not intractable, without status migrainosus (principal); R55 Syncope and collapse; F17.200 Nicotine dependence, unspecified, uncomplicated; Z88.5 Allergy status to narcotic agent; Z79.899 Other long term (current) drug therapy
CPT/HCPCS: 36415; 70450; 80053; 81001; 83735; 85025; 96374; 99284-25; J2405; J3030; J7030

== ENCOUNTER 2021-08-24 19:54 | Emergency (ER) | payer OTHER, MEDICARE ==
[~2021-08-24] VITALS: Ht 162.6 cm; Wt 83.9 kg
[~2021-08-24 19:54] MED LIST changes: +IMITREX25 MG PO
--- OUTSIDE RECORDS SUMMARY | 2021-08-24 19:56 | XMS ---
PreManage Notification: VALERIE MICHELLE Security Student Education Specialist Events No recent Security Events currently on file CRITERIA MET - [facility] - 2 Visits in 30 Days [facility] BARBAR[facility] RYDER Nurse Practitioner: Psychiatric/Mental 02/21/2019-[employer] PHONE: [phone] JELANI Lynn [facility] 03/18/2021-Current PHONE: Unknown Rody has no Care Guidelines for this patient. EVivian VISIT COUNT (12 MO.) [address] [place] [address] TOTAL 4 NOTE: Visits indicate total known visits. ED/UCC VISIT TRACKING (12 MO.) 08/24/2021 19:54 [facility] [place] TYPE: Emergency COMPLAINT: - HEADACHE 08/12/2021 04:40 [facility] [place] TYPE: Emergency COMPLAINT: - HEADACHE, LIGHTED HEADED DIAGNOSES: - Dizziness and giddiness - Other residential (current) drug therapy - Allergy status to narcotic agent - Syncope and collapse - Nicotine dependence, unspecified, uncomplicated - Migraine, unspecified, not intractable, without status migrainosus 06/26/2021 04:20 [facility] [place] TYPE: Emergency COMPLAINT: - WEAKNESS DIAGNOSES: - Nicotine dependence, unspecified, uncomplicated - Syncope and collapse - Other residential (current) drug therapy - Migraine, unspecified, not intractable, without status migrainosus - Urinary tract infection, site not specified - Allergy status to narcotic agent - Personal history of transient ischemic attack (TIA), and cerebral infarction without residual deficits 03/16/2021 18:21 [facility] [place] TYPE: Emergency COMPLAINT: - MIGRAINE HEADACHE DIAGNOSES: - Allergy status to narcotic agent - Other residential (current) drug therapy - Personal history of transient ischemic attack (TIA), and cerebral infarction without residual deficits - Nicotine dependence, unspecified, uncomplicated - Migraine, unspecified, not intractable, without status migrainosus INPATIENT VISIT TRACKING (12 MO.) No inpatient visits to display in this time frame [id number]
[2021-08-24] MEDS ORDERED: IMITREX6 MG/0.5 M SUB-Q (21:35)
== END 2021-08-24 22:01 | disposition home or self-care (01) ==
LOC: ED 19:54
DX: G43.909 Migraine, unspecified, not intractable, without status migrainosus (principal); G45.9 Transient cerebral ischemic attack, unspecified; F17.200 Nicotine dependence, unspecified, uncomplicated; Z88.5 Allergy status to narcotic agent; Z79.899 Other long term (current) drug therapy
CPT/HCPCS: 96372; 99283; J3030

== ENCOUNTER 2021-09-21 13:57 | Emergency (ER) | payer OTHER, MEDICARE ==
[~2021-09-21] VITALS: Ht 162.6 cm; Wt 86.1 kg
[~2021-09-21 13:57] MED LIST changes: +IMITREX6 MG/0.5 M SUB-Q
--- OUTSIDE RECORDS SUMMARY | 2021-09-21 14:00 | XMS ---
PreManage Notification: VALERIE MICHELLE Security Loans Officer Events No recent Security Events currently on file CRITERIA MET - [facility] - [facility] in [facility] Days [facility] Nurse Practitioner: Psychiatric/Mental 02/21/2019-[employer] PHONE: [phone] JELANI Lynn [facility] 03/18/2021-Current PHONE: Unknown Rody has no Care Guidelines for this patient. EVivian VISIT COUNT (12 MO.) [address] [place] [address] TOTAL 5 NOTE: Visits indicate total known visits. ED/UCC VISIT TRACKING (12 MO.) 09/21/2021 13:58 [facility] [place] TYPE: Emergency COMPLAINT: - HEADACHE 08/24/2021 19:54 [facility] [place] TYPE: Emergency COMPLAINT: - HEADACHE DIAGNOSES: - Migraine, unspecified, not intractable, without status migrainosus - Transient cerebral ischemic attack, unspecified - Nicotine dependence, unspecified, uncomplicated - Allergy status to narcotic agent - Other jail (current) drug therapy - Headache, unspecified 08/12/2021 04:40 [facility] [facility] [place] TYPE: Emergency COMPLAINT: - HEADACHE, LIGHTED HEADED DIAGNOSES: - Dizziness and giddiness - Other regional intermodal truck driver (current) drug therapy - Allergy status to narcotic agent - Syncope and collapse - Nicotine dependence, unspecified, uncomplicated - Migraine, unspecified, not intractable, without status migrainosus 06/26/2021 04:20 [facility] [place] [facility] [place] TYPE: Emergency COMPLAINT: - WEAKNESS DIAGNOSES: - Nicotine dependence, unspecified, uncomplicated - Syncope and collapse - Other jail (current) drug therapy - Migraine, unspecified, not intractable, without status migrainosus - Urinary tract infection, site not specified - Allergy status to narcotic agent - Personal history of transient ischemic attack (TIA), and cerebral infarction without residual deficits 03/16/2021 18:21 [facility] [place] [facility] [place] TYPE: Emergency COMPLAINT: - MIGRAINE HEADACHE DIAGNOSES: - Allergy status to narcotic agent - Other jail (current) drug therapy - Personal history of transient ischemic attack (TIA), and cerebral infarction without residual deficits - Nicotine dependence, unspecified, uncomplicated - Migraine, unspecified, not intractable, without status migrainosus INPATIENT VISIT TRACKING (12 MO.) No inpatient visits to display in this time frame [id number]
[2021-09-21] MEDS ORDERED: IMITREX6 MG/0.5 M SUB-Q (16:54)
== END 2021-09-21 17:31 | disposition home or self-care (01) ==
LOC: ED 13:57
DX: G43.909 Migraine, unspecified, not intractable, without status migrainosus (principal); F17.200 Nicotine dependence, unspecified, uncomplicated; Z88.5 Allergy status to narcotic agent; Z79.899 Other long term (current) drug therapy
CPT/HCPCS: 96372; 99283; J3030

== ENCOUNTER 2021-12-01 22:02 | Emergency (ER) | payer OTHER ==
[~2021-12-01] VITALS: Ht 162.6 cm; Wt 87.9 kg
--- OUTSIDE RECORDS SUMMARY | 2021-12-01 22:04 | XMS ---
PreManage Notification: VALERIE MICHELLE Security Bakery Products Checker Events No recent Security Events currently on file CRITERIA MET - [place] - [facility] - 2 Visits in 30 Days - 6 ED Visits in 6 Months CARE PROVIDERS BARBARA RYDER Nurse Practitioner: Psychiatric/Mental 02/21/2019-RoomActually PHONE: [phone] JELANI Lynn [facility] 03/18/2021-Current PHONE: Unknown Rody has no Care Guidelines for this patient. EVivian VISIT COUNT (12 MO.) [address] [place] [address] TOTAL 7 NOTE: Visits indicate total known visits. ED/UCC VISIT TRACKING (12 MO.) 12/01/2021 22:[address] [facility] [place] TYPE: Emergency COMPLAINT: - HEADACHE 11/27/2021 18:[address] [facility] [facility] [place] TYPE: Emergency COMPLAINT: - FALL DIAGNOSES: - Presence of artificial knee joint, bilateral - Striking against other object with subsequent fall, initial encounter - Contusion of right knee, initial encounter - Allergy status to narcotic agent - Pain in right knee - Contusion of left knee, initial encounter - Other [facility] (current) drug therapy [facility] COMPLAINT: - HEADACHE DIAGNOSES: - Nicotine dependence, unspecified, uncomplicated - Migraine, unspecified, not intractable, without status migrainosus - Allergy status to narcotic agent - Headache, unspecified - Other mcfp (current) drug therapy 08/24/2021 19:54 [facility] [place] TYPE: Emergency COMPLAINT: - HEADACHE DIAGNOSES: - Migraine, unspecified, not intractable, without status migrainosus - Transient cerebral ischemic attack, unspecified - Nicotine dependence, unspecified, uncomplicated - Allergy status to narcotic agent - Other mcfp (current) drug therapy - Headache, unspecified 08[facility]12/2021 04[facility]40 [facility] [place] [facility] COMPLAINT: - HEADACHE, LIGHTED HEADED DIAGNOSES: - Dizziness and giddiness - Other long term acute care registered nurse (current) drug therapy - Allergy status to narcotic agent - Syncope and collapse - Nicotine dependence, unspecified, uncomplicated - Migraine, unspecified, not intractable, without status migrainosus 06/26/2021 04:20 [facility] [place] TYPE: Emergency COMPLAINT: - WEAKNESS DIAGNOSES: - Nicotine dependence, unspecified, uncomplicated - Syncope and collapse - Other long term acute care registered nurse (current) drug therapy - Migraine, unspecified, not intractable, without status migrainosus - Urinary tract infection, site not specified - Allergy status to narcotic agent - Personal history of transient ischemic attack (TIA), and cerebral infarction without residual deficits 03/16/2021 18:21 [facility] [place] TYPE: Emergency COMPLAINT: - MIGRAINE HEADACHE DIAGNOSES: - Allergy status to narcotic agent - Other mcfp (current) drug therapy - Personal history of transient ischemic attack (TIA), and cerebral infarction without residual deficits - Nicotine dependence, unspecified, uncomplicated - Migraine, unspecified, not intractable, without status migrainosus INPATIENT VISIT TRACKING (12 MO.) No inpatient visits to display in this time frame [id number]
[2021-12-02] MEDS ORDERED: IMITREX6 MG/0.5 M SUB-Q (01:28)
== END 2021-12-02 01:57 | disposition home or self-care (01) ==
LOC: ED 22:02
DX: G43.909 Migraine, unspecified, not intractable, without status migrainosus (principal); F17.200 Nicotine dependence, unspecified, uncomplicated; Z86.73 Personal history of transient ischemic attack (TIA), and cerebral infarction without residual deficits; Z88.5 Allergy status to narcotic agent; Z79.899 Other long term (current) drug therapy
CPT/HCPCS: 96361; 96374; 96375; 99283-25; J1200; J1885; J2765; J3030; J7030